=== PATIENT | male | born 1935 | race Caucasian/White ===

== ENCOUNTER 2019-03-08 16:20 | Inpatient (IN) | payer MEDICARE ==
--- NOTE | 2019-03-08 16:50 | Emergency Department Record ---
History of Present Illness - General Chief Complaint: Shortness of breath Stated Complaint: COBY,LEG SWELLING Time Seen by Provider: 03/08/19 16:26 Source: Patient, Family Mode of Arrival: Ambulatory Limitations: No limitations - History of Present Illness Initial Comments: 83 yo male presents with left leg swelling, shortness of breath, weakness since a recent admission and discharge from [facility]. The patient had a fall on 02/27/19. He was seen in the [facility] ED. A Troponin was drawn part of the trauma work up and it was found to be elevated. He had a NM Myocardial stress study that was abnormal. He had a heart cath with stent placement with Dr Luz. The patient was discharged last . He states he has done poorly since then. He is weak requiring assistance standing or walking. He is short of breath. He has swelling in his legs with the left being more swollen than the right. He saw his PCP today. Labs and a venous doppler were completed. WBC was 13. Hgb is 12. BNP was 967. CR is 1.6. AST is 261. ALT is 128. ALK Phos is 84. He lives with his of the same age. He has been unable to stand on his own, he is unable to void on his own, he is dribbling urine. He has self cathed in the past but he is unable currently. His daughter reports his physical abilities have significantly weakened since DC home last . Complaint: Shortness of breath -: Days(s) Severity: Moderate Consistency: Constant Improves With: Nothing Worsens With: Other (Recent hospitalization) Known History Of: Other Context: Other Associated Symptoms: Other Treatments Prior to Arrival: Other (Labs, Venous doppler.) - Related Data Home Medications Medication Instructions Recorded Confirmed Last Taken Albuterol Sulfate [Ventolin Hfa] 1 puff IH Q6H PRN 03/08/19 03/08/19 Unknown Aspirin [Aspir-Low] 81 mg PO DAILY 03/08/19 03/08/19 Unknown Atorvastatin Calcium 20 mg PO DAILY 03/08/19 03/08/19 Unknown Clopidogrel Bisulfate [Clopidogrel] 75 mg PO DAILY 03/08/19 03/08/19 Unknown Fluticasone/Salmeterol [Advair 1 puff IH DAILY 03/08/19 03/08/19 Unknown 250-50 Diskus] Metoprolol Succinate 25 mg PO DAILY 03/08/19 03/08/19 Unknown Nitroglycerin 0.4 mg PO ASDIR PRN 03/08/19 03/08/19 Unknown Pantoprazole Sodium [Protonix] 40 mg PO DAILY 03/08/19 03/08/19 Unknown Allergies Allergy/AdvReac Type Severity Reaction Status Date / Time ciprofloxacin Allergy PT UNSURE Verified 03/08/19 16:51 OF REACTION Review of Systems Constitutional: Reports: Malaise, Weakness. Denies: Chills, Fever Eyes: Denies: Eye discharge, Eye pain, Photophobia, Vision change ENT: Denies: Congestion, Throat pain Respiratory: Reports: Dyspnea. Denies: Cough, Hemoptysis, Stridor, Wheezes Cardiovascular: Reports: Dyspnea on exertion, Edema (legs; Left greater than right). Denies: Chest pain, Palpitations, Syncope Endocrine: Reports: Fatigue Gastrointestinal: Denies: Abdominal pain, Diarrhea, Nausea, Vomiting Genitourinary: Denies: Dysuria, Frequency, Hematuria Musculoskeletal: Reports: Myalgia. Denies: Arthralgia, Back pain Skin: Reports: Change in color. Denies: Bruising Neurological: Denies: Headache Psychiatric: Denies: Anxiety Hematological/Lymphatic: Denies: Easy bleeding, Easy bruising Physical Exam - General General Appearance: Alert, Oriented x3, Cooperative, No acute distress Limitations: No limitations - Head Head exam: Atraumatic, Normal inspection - Eye Eye exam: Normal appearance, PERRL. negative: Conjunctival injection, Scleral icterus - ENT ENT exam: Mucous membranes dry Ear exam: Normal external inspection Nasal Exam: Normal inspection Mouth exam: Normal external inspection - Neck Neck exam: Normal inspection - Respiratory Respiratory exam: Normal lung sounds bilaterally, Decreased breath sounds. negative: Accessory muscle use, Prolonged expiratory, Rhonchi, Stridor, Wheezes - Cardiovascular Cardiovascular Exam: Regular rate, Normal rhythm, Normal heart sounds Peripheral Pulses: 2+: Radial (R), Radial (L), Dorsalis Pedis (L) - GI/Abdominal GI/Abdominal exam: Soft, Tenderness (suprapubic tenderness), Other (After the villatoro was place the abdomen distention) - Rectal Rectal exam: Deferred - exam: Deferred - Extremities Extremities exam: Calf tenderness (mild left distal), Normal capillary refill, Pedal edema (Left calf mildly warmth with mild eruthema and edeam). negative: Normal inspection, Tenderness - Back Back exam: Denies: CVA tenderness (R), CVA tenderness (L) - Neurological Neurological exam: Alert, Oriented X3 - Psychiatric Psychiatric exam: Normal affect, Normal mood - Skin Skin exam: Erythema (left lower leg) Course - Reevaluation(s) Reevaluation #1: The CBC, CMP, and BNP were reviewed EKG #1: 16:44 Rate: 86 Rhythm: sinus [place]: normal Intervals: normal ST segments: normal Prior: None 03/08/19 16:51 03/08/19 17:17 The Troponin is normal 03/08/19 17:31 The Venous doppler of the legs was negative for DVT. Edema noted CXR demonstrated CMG without PVC or acute process 03/08/19 18:12 The UA is consistent with UTI His LLE has mild calf erythema and warmth IV antibiotics ordered The Villatoro drainage about 800ml due to urinary retention. 03/08/19 18:32 The results were discussed with the patient and family. Given his UTI, Cellulitis, weakness, urinary retention, deconditioning I recommend admission. The patient and family request admission to [facility] and not [facility] at this time. I SW Marty Marcano LIGHT ADJUSTER for admission. We discussed the labs, plan for gentle hydration, antibiotics, evaluation for physical therapy, monitor urinary retention. The patient and family are aware if he has any worsening of his condition. 03/08/19 18:55 Disposition Disposition: Admit Clinical Impression: Muscular deconditioning, Renal insufficiency, Elevated liver enzymes UTI (urinary tract infection) Qualifiers: Hematuria presence: without hematuria Cellulitis Qualifiers: Site of cellulitis: extremity Site of cellulitis of extremity: lower extremity Laterality: left Qualified Code(s): L03.116 - Cellulitis of left lower limb Disposition: Still a Patient at [facility] Decision to Admit: Admit from ER Decision to Admit Date: 03/08/19 Decision to Admit Time: 18:14 Condition: (2) Stable Forms: Patient Portal Access Time of Disposition: 18:14 Quality - Quality Measures Quality Measures: N/A - Blood Pressure Screening Does Patient Have Any of the Following: Active Dx of HTN Blood Pressure Classification: Hypertensive Reading Systolic Measurement: 158 Diastolic Measurement: 65 Screening for High Blood Pressure: Patient Exclusion, Hx of HTN [G9744]
[2019-03-08 17:04] LABS: PARTIAL THROMBOPLASTIN TIME 25.7 SECONDS (24.5-39.1); PROTHROMBIN TIME (PATIENT) 10.4 SECONDS (9.5-12.1)
[2019-03-08 18:00] LABS: URINE APPEARANCE SL CLOUDY; URINE BILIRUBIN NEGATIVE (NEGATIVE); URINE BLOOD LARGE (NEGATIVE); URINE COLOR YELLOW; URINE GLUCOSE (UA) NEGATIVE (NEGATIVE); URINE KETONE NEGATIVE (NEGATIVE); URINE LEUKOCYTE ESTERASE MODERATE (NEGATIVE); URINE NITRITE POSITIVE (NEGATIVE); URINE UROBILINOGEN 0.2 E.U./dL (0.20 - 1.00)
[2019-03-08 18:08] LABS: URINE RBC 21 - 35 (NONE SEEN); URINE WBC >50 (0-2/hpf)
[2019-03-08 18:09] LABS: URINE BACTERIA FEW; URINE EPITHELIAL CELLS 0 - 2 (FEW)
[2019-03-08] MEDS ORDERED: CEFTRIAXONE 1GM/50ML BAG 1 GM/50 ML BAG IVPB ONE (18:11)
[2019-03-08] MEDS ORDERED: CEFTRIAXONE 1GM/50ML BAG 1 GM/50 ML BAG IVPB SCH (20:09)
[2019-03-08] MEDS: 0.9 % SODIUM CHLORIDE 1000ML 1,000 ML IV PRN (20:55)
[2019-03-09] MEDS: PANTOPRAZOLE SODIUM 40 MG TABLET PO SCH (06:29)
[2019-03-09 06:45] LABS: ALB/GLOB RATIO 0.8 (1.1-1.8); ALBUMIN 2.5 g/dL (4.0-5.0); ALKALINE PHOSPHATASE 65 U/L (40-129); ALT/SGPT 93 U/L (<41); AST/SGOT 148 U/L (10.0-50.0); BLOOD UREA NITROGEN 32 mg/dL (8-23); CREATININE 1.2 mg/dL (0.7-1.2); EST GLOMERULAR FILTRATION RATE > 60 mL/min; GLUCOSE,RANDOM 106 mg/dL (74-109); TOTAL PROTEIN 5.6 g/dL (6.6-8.7)
--- NOTE | 2019-03-09 07:37 | RADIOLOGY REPORT ---
EXAM: CHEST, TWO VIEWS HISTORY: EDEMA IN LEFT LEG. TECHNIQUE: Upright AP and lateral views of the chest were obtained. Comparison: None. FINDINGS: The heart projects borderline to mildly enlarged. No pulmonary venous hypertension is seen. Biapical pleural and parenchymal scarring is suggested, left slightly greater than right. No lung consolidation, costophrenic angle blunting or pneumothorax. There is possible minimal linear scarring versus atelectasis in the retrocardiac left lung base. The lungs and pleural spaces are otherwise clear. There are degenerative changes of the visualized spine and shoulder girdles. IMPRESSION: 1. BORDERLINE TO MILDLY ENLARGED HEART WITHOUT PULMONARY VENOUS HYPERTENSION. 2. NO CONVINCING EVIDENCE OF AN ACUTE PULMONARY PROCESS. BIAPICAL PLEURAL AND PARENCHYMAL SCARRING, LEFT SLIGHTLY GREATER THAN RIGHT. POSSIBLE MINOR LINEAR SCARRING VERSUS ATELECTASIS IN THE RETROCARDIAC LEFT LUNG BASE. JOB NUMBER: [id number] MTDD
[2019-03-09] MEDS: 0.9 % SODIUM CHLORIDE 1000ML 1,000 ML IV PRN ×2 (08:24→21:51)
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
[2019-03-09] MEDS: ASPIRIN 81 MG TABEC PO SCH (09:58)
[2019-03-09] MEDS: METOPROLOL SUCC 25 MG TAB.ER PO SCH (09:58)
[2019-03-09] MEDS: CLOPIDOGREL 75MG TABLET PO SCH (09:58)
[2019-03-09] MEDS: TRAMADOL HCL 50 MG TABLET PO PRN (11:05)
[2019-03-09] MEDS: SENNOSIDES/DOCUSATE SODIUM UD CAPSULE PO SCH (11:06)
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
[2019-03-09] MEDS: ENOXAPARIN 40 MG/0.4 ML SYR SQ SCH (12:27)
[2019-03-09] MEDS: BREO (FLUTICASONE/VILANTEROL) 200MCG/25MCG INHALER INH SCH (12:50)
[2019-03-09] MEDS ORDERED: CEFTRIAXONE 1GM/50ML BAG 1 GM/50 ML BAG IVPB SCH (18:00)
[2019-03-10] MEDS: TRAMADOL HCL 50 MG TABLET PO PRN (02:17)
[2019-03-10 06:35] LABS: ABSOLUTE NEUTROPHIL COUNT 5.11; BASO % 0.4 % (0-6); EOS % 3.6 % (0-6); GRAN % 61.7 % (47-80); HEMATOCRIT 29.7 % (42.0-52.0); HEMOGLOBIN 9.3 gm/dl (14.0-18.0); LYMPH % 22.6 % (16-45); MEAN CELL VOLUME 89.2 fl (81-97); MEAN CORPUSCULAR HEMOGLOBIN 27.9 pg (27-33); MEAN CORPUSCULAR HGB CONC 31.3 g/dl (32-36); MEAN PLATELET VOLUME 11.3 fl (7.4-10.4); MONO % 11.7 % (0-9); PLATELET COUNT 240 K/uL (130-400); RED BLOOD COUNT 3.33 M/uL (4.40-5.70); RED CELL DISTRIBUTION WIDTH 13.1 % (11.5-14.5); WHITE BLOOD COUNT W/O DIFF 8.3 K/uL (4.2-12.2)
[2019-03-10 06:52] LABS: ALB/GLOB RATIO 0.8 (1.1-1.8); ALBUMIN 2.6 g/dL (4.0-5.0); ALKALINE PHOSPHATASE 64 U/L (40-129); ALT/SGPT 84 U/L (<41); AST/SGOT 105 U/L (10.0-50.0); BLOOD UREA NITROGEN 23 mg/dL (8-23); CREATININE 0.9 mg/dL (0.7-1.2); EST GLOMERULAR FILTRATION RATE > 60 mL/min; GLUCOSE,RANDOM 105 mg/dL (74-109); TOTAL PROTEIN 5.7 g/dL (6.6-8.7)
[2019-03-10] MEDS: PANTOPRAZOLE SODIUM 40 MG TABLET PO SCH (07:18)
--- NOTE | 2019-03-10 07:32 | ULTRASOUND REPORT ---
EXAM: ULTRASOUND OF THE ABDOMEN COMPLETE HISTORY: ABNORMAL LIVER FUNCTION. TECHNIQUE: Routine ultrasound examination of the abdomen was performed. Comparison: CT of the abdomen and pelvis without and with contrast dated 09/19/06. FINDINGS: The pancreatic tail is obscured by overlying bowel gas. The remainder of the pancreas is visualized and without focal abnormality. The proximal abdominal aorta is not diagnostically visualized. The mid and distal portions of the abdominal aorta are visualized without aneurysmal dilatation. The intrahepatic IVC is patent. The liver is homogeneous in echotexture to the extent visualized. No hepatic mass. No intra nor extrahepatic biliary ductal dilatation is seen with the common hepatic duct measuring 3 mm. The gallbladder is normal in appearance and there is a negative sonographic Santana's sign. The spleen is not enlarged. The renal margins are not optimally visualized due to body habitus. The visualized renal margins are smooth. The right kidney measures 10 cm in length and the left kidney measures 9 cm in length. No definite hydronephrosis. There is a thin walled anechoic mass with enhanced posterior through transmission arising within the upper pole of the left kidney. This measures 3.3 x 3.6 x 2.8 cm and is consistent with a benign cyst. A couple additional similar masses are noted within the left kidney measuring 1.2 cm and 1.2 cm in maximum diameter respectively. These are also likely benign cysts. There is a thin walled anechoic mass with enhanced posterior through transmission arising within the mid to lower right kidney. This measures 2.5 x 2.2 cm. No definite shadowing renal calculus. IMPRESSION: 1. LIMITED EXAMINATION DUE TO BODY HABITUS AND ABUNDANT BOWEL GAS. 2. NO ACUTE ABNORMALITY IDENTIFIED. 3. BILATERAL RENAL CYSTS. JOB NUMBER: [id number] [facility]
--- NOTE | 2019-03-10 07:36 | RADIOLOGY REPORT ---
EXAM: LEFT LOWER LEG, TWO VIEWS HISTORY: POSTERIOR PAIN. RECENT FALL. TECHNIQUE: AP and lateral views of the left lower leg are obtained. Comparison: Same day radiographic examination of the left foot. Encounter: Initial. FINDINGS: There is normal bone mineralization. No acute fracture nor dislocation. Mild tricompartmental osteoarthritic changes of the knee are identified including chondrocalcinosis of the medial and lateral menisci. The ankle mortise joint appears intact. There is a tiny plantar calcaneal spur. Mild diffuse soft tissue swelling is questioned. IMPRESSION: 1. NO ACUTE FRACTURE NOR DISLOCATION. 2. MILD DEGENERATIVE CHANGES OF THE LEFT KNEE. 3. MILD SOFT TISSUE SWELLING THROUGHOUT THE LOWER LEG. JOB NUMBER: [id number] MTDD
--- NOTE | 2019-03-10 07:42 | RADIOLOGY REPORT ---
EXAM: LEFT FOOT, THREE VIEWS HISTORY: PAIN IN POSTERIOR LOWER LEG EXTENDING TO HEEL. RECENT FALL. TECHNIQUE: Three views of the left foot were obtained. Comparison: Same day radiographic examination of the left lower leg. Encounter: Initial. FINDINGS: There is borderline osteopenia. No acute fracture, dislocation, nor destructive bone lesion identified. There are mild to moderate osteoarthritic changes of the first MTP joint. The articular relations are otherwise maintained. No periarticular erosion. There is possible tiny plantar calcaneal spur. Minor linear calcific density is noted near the posterior margin of the distal Achilles tendon suspicious for tendinosis. There is minor spurring of the medial malleolus. IMPRESSION: 1. NO ACUTE FRACTURE NOR DISLOCATION. 2. MILD TO MODERATE OSTEOARTHRITIC CHANGES OF THE FIRST MTP JOINT. TINY PLANTAR CALCANEAL SPUR QUESTIONED. MINOR LINEAR CALCIFIC DENSITY AT THE LEVEL OF THE DISTAL ACHILLES TENDON SUSPICIOUS FOR CALCIFIC TENDINOSIS OR ENTHESOPATHIC CHANGE. JOB NUMBER: [id number] MTDD
[2019-03-10] MEDS: SENNOSIDES/DOCUSATE SODIUM UD CAPSULE PO SCH (09:11)
[2019-03-10] MEDS: CLOPIDOGREL 75MG TABLET PO SCH (09:11)
[2019-03-10] MEDS: METOPROLOL SUCC 25 MG TAB.ER PO SCH (09:11)
[2019-03-10] MEDS: ASPIRIN 81 MG TABEC PO SCH (09:11)
[2019-03-10] MEDS: ENOXAPARIN 40 MG/0.4 ML SYR SQ SCH (09:11)
[2019-03-10] MEDS: CEFEPIME HCL 2 GM in 0.9 % SODIUM CHLORIDE 100ML 100 ML IVPB SCH ×2 (09:51→21:27)
[2019-03-10] MEDS: BREO (FLUTICASONE/VILANTEROL) 200MCG/25MCG INHALER INH SCH (10:31)
--- NOTE | 2019-03-10 12:16 | Physician Progress Note ---
Subjective - Date Date of Physician Progress Note: 03/10/19 - Subjective Subjective Comment: Sitting up in chair, A&Ox3. Reports pain in his BLE, that was quite painful the previous evening. Worked with PT/OT yesterday and staff reported that he required 2 people to stand. Today, the RN reported that he was able to stand with a 1 person assist. Pt reports that he has eaten more the past 2 days than he has the entire month. Had a urine culture done on 02/25/19 which showed + for pseudomonas. Did receive a 5 day dose of Ciprofloxacin. Pt reports an allergy to Cipro but doesn't know the reaction. Reports that his previous PCP told him that years ago. Location: Left, Right, Lower extremity Quality: Aching Consistency: Constant Improves with: Medication Worsens with: Immobilization Objective - Multidiciplinary Team Multidiciplinary Team: OT, PT - Vital Signs Vital Signs: Vital Signs - Last 24 Hrs Temp Pulse Pulse Pulse Resp BP Pulse Ox 03/10/19 10:34 73 18 95 03/10/19 08:00 98.2 F 73 16 142/58 93 L 03/09/19 22:00 98.4 F 72 18 134/66 94 L 03/09/19 20:41 16 03/09/19 16:00 97.2 F L 73 73 16 138/58 96 03/09/19 12:45 65 16 - General General Appearance: Alert, Oriented x3, Cooperative, No acute distress Limitations: No limitations - Head Head exam: Atraumatic, Normal inspection - Eye Eye exam: Normal appearance, PERRL. negative: Conjunctival injection, Scleral icterus - ENT ENT exam: Mucous membranes dry Ear exam: Normal external inspection Nasal Exam: Normal inspection Mouth exam: Normal external inspection - Neck Neck exam: Normal inspection - Respiratory Respiratory exam: Normal lung sounds bilaterally. negative: Accessory muscle use, Prolonged expiratory, Respiratory distress, Rhonchi, Stridor, Wheezes - Cardiovascular Cardiovascular Exam: Regular rate, Normal rhythm, Normal heart sounds Peripheral Pulses: 2+: Radial (R), Radial (L), Dorsalis Pedis (R), Dorsalis Pedis (L) - GI/Abdominal GI/Abdominal exam: Soft, Normal bowel sounds - Rectal Rectal exam: Deferred - exam: Normal inspection - Extremities Extremities exam: Calf tenderness (mild left distal), Normal capillary refill, Pedal edema (Left calf mildly warmth with mild erythema and edema). negative: Normal inspection, Tenderness - Back Back exam: Denies: CVA tenderness (R), CVA tenderness (L) - Neurological Neurological exam: Alert, Oriented X3 - Psychiatric Psychiatric exam: Normal affect, Normal mood - Skin Skin exam: Erythema (left lower leg), Other (faint bruising to left calf) Assessment and Plan - Assessment and Plan (1) Pain of left lower extremity Current Visit: Yes Status: Acute Base Code: M79.605 - PAIN IN LEFT LEG Comment: 03/09/19 -LLE Dopplar Negative for DVT -Left foot Xray: no fractures. OA changes -Left tib/Fib Xray: No fractures. Soft tissue swelling -Continue Ultram 50mg q. 4 hours PRN for pain control -Avoiding Acetaminophen d/t elevated liver enzymes and Ibuprofen d/t renal insufficiency (2) Cellulitis Current Visit: Yes Status: Acute Qualifiers: Site of cellulitis: extremity Site of cellulitis of extremity: lower extremity Laterality: left Qualified Code(s): L03.116 - Cellulitis of left lower limb Base Code: L03.90 - CELLULITIS, UNSPECIFIED Comment: 03/10/19 -Erythema, Edema to LLE -IV Atbx changed to IV Cefepime for better UTI coverage, will monitor LLE erythema and edema to see if Staph coverage needed (3) Elevated liver enzymes Current Visit: Yes Status: Acute Base Code: R74.8 - ABNORMAL LEVELS OF OTHER SERUM ENZYMES Comment: 03/10/19 -AST down from 148 to 105 -ALT down from 93 to 84 -Abdomen U/S: No acute process (4) Muscular deconditioning Current Visit: Yes Status: Acute Base Code: R29.898 - OTH SYMPTOMS AND SIGNS INVOLVING THE MUSCULOSKELETAL SYSTEM Comment: 03/10/19 -[facility] 02[facility] to 03/03/19 -Has not ambulated since 02/27/19 -Continue PT/OT -Discussed SubAcute Rehab for further PT/OT, pt agreeable (5) UTI (urinary tract infection) Current Visit: Yes Status: Acute Qualifiers: Hematuria presence: without hematuria Base Code: N39.0 - URINARY TRACT INFECTION, SITE NOT SPECIFIED Comment: 03/10/19 -U/A: Large Blood, +Nitrites, + Leukocytes -C&S pending -Was seen in [facility] on 02/25/19 for UTI and retention and completed 5 days of Cipro -C&S from [facility] on 02/25/19 positive for Pseudomonas -D/t Cipro allergy, will start IV Cefepime (which is susceptible per 02/25/19 C&S) -PICC placed d/t needing 10 days of treatment -D/C villatoro -Continue IV Rocephin (6) Restless legs Current Visit: Yes Status: Acute Base Code: G25.81 - RESTLESS LEGS SYNDROME Comment: 03/10/19 -Trial Requip 0.5mg q. HS for RLS symptoms (7) Full code status Current Visit: Yes Status: Acute Base Code: Z78.9 - OTHER SPECIFIED HEALTH STATUS Comment: 03/10/19 -Full Code this admission (8) DVT prophylaxis Current Visit: Yes Status: Acute Base Code: Z29.9 - ENCOUNTER FOR OR OPHYLACTIC MEASURES, UNSPECIFIED Comment: 03/10/19 -High Risk -Lovenox 40mg subq daily Results - Labs Result Diagrams: 03/10/19 06:12 03/10/19 06:12 Labs Last 24 Hours: Laboratory Results - last 24 hr 03/10/19 03/10/19 06:12 06:12 WBC 8.3 RBC 3.33 L Hgb 9.3 L Hct 29.7 L MCV 89.2 MCH 27.9 MCHC 31.3 L RDW 13.1 Plt Count 240 MPV 11.3 H Gran % 61.7 Lymphocytes % 22.6 Monocytes % 11.7 H Eosinophils % 3.6 Basophils % 0.4 Absolute Neutrophils 5.11 Sodium 139 Potassium 4.4 Chloride 107 Carbon Dioxide 23.0 Anion Gap 9.0 BUN 23 Creatinine 0.9 Estimated GFR > 60 Random Glucose 105 Calcium 8.4 L Total Bilirubin 0.30 AST 105 H ALT 84 H Alkaline Phosphatase 64 Total Protein 5.7 L Albumin 2.6 L Globulin 3.1 Albumin/Globulin Ratio 0.8 L DVT/PE Assessment - Risk for VTE Risk for VTE: No Risk Level: High Risk Assessment Date: 03/09/19 Risk Assessment Time: 09:30 VTE Orders Placed or Will Be Placed: Yes - Active Medicaitons Current Medications: Current Medications Aspirin (Ecotrin (Ec)) 81 mg PO DAILY JESSICA Last Admin: 03/10/19 09:11 Dose: 81 mg Documented by: Clopidogrel Bisulfate (Plavix) 75 mg PO DAILY [facility] Last Admin: 03/10/19 09:11 Dose: 75 mg Documented by: Enoxaparin Sodium (Lovenox) 40 mg SQ DAILY [facility] Last Admin: 03/10/19 09:11 Dose: 40 mg Documented by: CEFEPIME HCL 2 gm/ Sodium (Chloride) 100 mls @ 200 mls/hr IVPB Q12H [facility] Last Admin: 03/10/19 09:51 Dose: 200 mls/hr Documented by: Metoprolol Succinate (Toprol Xl) 25 mg PO DAILY [facility] Last Admin: 03/10/19 09:11 Dose: 25 mg Documented by: [facility]oprazole [facility] Admin: 03/10/19 07:18 Dose: 40 mg Documented by: Ropinirole HCl (Requip) 0.5 mg PO QHS [facility] Senna/Docusate Sodium (Senna Plus) 1 each PO DAILY [facility] Last Admin: 03/10/19 09:11 Dose: 1 each Documented by: Tramadol HCl (Ultram) 50 mg PO Q4H PRN PRN Reason: PAIN - MILD TO MODERATE (1-7) Last Admin: 03/10/19 02:17 Dose: 50 mg Documented by: AMI Plan - Labs Result Diagrams: 03/10/19 06:12 03/10/19 06:12
--- NOTE | 2019-03-10 14:24 | Physical Therapy Tx Note ---
Physical Therapy Tx Note - Treatment Note Total Time Spent With Patient: 30 Physical Therapy Tx Note: Detail (Pt up in bedside chair upon arrival; awake/alert, cooperative for therapy. and daughter present in room. Pt performed 10 reps each of seated marching, knee extension, heel slides, ankle dorsiflexion R, isometric hip adduction w/pillow, isometric hip abduction w/manual resistance. Attempted sit/stand to front-wheeled walker; unable to fully rise from chair w/mod assist of one or w/mod assist of two (PT and nurse). Partially stood w/o walker with heavy moderate assist of two (PT and MA) while nurse moved bedside chair and put recliner behind pt. Pt was able to independently scoot back in chair; nrsg elevated legs, PT placed pillow under legs and reviewed exercises he could do in recliner. Bedside table placed on R side of pt, call light in pt's lap.) Physical Therapy Problem List: Detail (1) Decreased UE and LE strength 2) Assistance with bed mobility, transfers 3) Non ambulatory 4) Decreased standing balance due to LE weakness) Physical Therapy Goals: 1) The patient will be independent with bed mobility. 2) The patient will require CG/supervision of 1 with transfers. 3) The patient will ambulate with supervison/CG of 1 with appropriate assistive device household distances. 4) Increase LE strength 1/3 muscle grade to improve ability to transfer and ambulate. 5) The patient will tolerate 15 to 20 minutes of physical activity with minimal shortness of breath with one rest period. Physical Therapy Plan: PT daily M-F for gait training, transfer training, bed mobility , LE and UE strengthening and balance exercises.
[2019-03-10] MEDS ORDERED: ACETAMINOPHEN 325 MG TAB PO PRN (17:27)
[2019-03-10] MEDS ORDERED: ROPINIROLE HCL 1 MG TABLET PO SCH (22:00)
[2019-03-11] MEDS: PANTOPRAZOLE SODIUM 40 MG TABLET PO SCH (06:18)
--- NOTE | 2019-03-11 07:18 | RADIOLOGY REPORT ---
EXAM: PORTABLE CHEST HISTORY: PICC LINE PLACEMENT. TECHNIQUE: A single mobile upright view of the chest was obtained. Comparison: Two view chest radiographic examination dated 03/08/19. FINDINGS: There has been interval placement of a right upper extremity PICC with its tip in the upper SVC. The heart is not grossly enlarged. No pulmonary venous hypertension is seen. The aortic knob is atherosclerotic. The lung volumes are low. Minor patchy opacities are demonstrated within each lung base consistent with atelectasis or less likely infiltrate. Biapical pleural and parenchymal scarring redemonstrated, left slightly greater than right. IMPRESSION: 1. INTERVAL PLACEMENT OF A RIGHT UPPER EXTREMITY PICC, THE TIP OF WHICH IS IN THE UPPER SVC. 2. MINOR PATCHY OPACITIES IN EACH LUNG BASE, STABLE ON THE LEFT AND NEW ON THE RIGHT CONSISTENT WITH ATELECTASIS OR LESS LIKELY INFILTRATE. JOB NUMBER: [id number] MTDD
--- NOTE | 2019-03-11 09:30 | Discharge Summary ---
Providers Discharge Summary Date: 03/11/19 Date of admission: 03/08/19 19:31 Attending physician: MEREDITH ENNIS Primary care physician: AYE KEMP D.O. Consults: Consult Orders 03/10/19 17:29 Consult NOW Consulting Provider: DEIRDRE ALVA Physician Instructions: Reason For Exam: Urinary Retention Physical Exam - Vital Signs Vital Signs: Vital Signs - Last 24 Hrs Temp Pulse Pulse Resp BP Pulse Ox 03/11/19 07:30 98.1 F 77 16 124/58 94 L 03/10/19 20:19 18 03/10/19 18:40 98.1 F 87 16 150/58 94 L 03/10/19 16:00 100.1 F H 83 16 172/70 94 L 03/10/19 10:34 73 18 95 - General General Appearance: Alert, Oriented x3, Cooperative, No acute distress Limitations: No limitations - Head Head exam: Atraumatic, Normal inspection - Eye Eye exam: Normal appearance, PERRL. negative: Conjunctival injection, Scleral icterus - ENT ENT exam: Mucous membranes dry Ear exam: Normal external inspection Nasal Exam: Normal inspection Mouth exam: Normal external inspection - Neck Neck exam: Normal inspection - Respiratory Respiratory exam: Normal lung sounds bilaterally. negative: Accessory muscle use, Prolonged expiratory, Respiratory distress, Rhonchi, Stridor, Wheezes - Cardiovascular Cardiovascular Exam: Regular rate, Normal rhythm, Normal heart sounds Peripheral Pulses: 2+: Radial (R), Radial (L), Dorsalis Pedis (R), Dorsalis Pedis (L) - GI/Abdominal GI/Abdominal exam: Soft, Normal bowel sounds - Rectal Rectal exam: Deferred - exam: Normal inspection - Extremities Extremities exam: Calf tenderness (left ankle and calf), Normal capillary refill, Pedal edema (Left calf mildly warmth with mild erythema and edema). negative: Normal inspection, Tenderness - Back Back exam: Denies: CVA tenderness (R), CVA tenderness (L) - Neurological Neurological exam: Alert, Oriented X3 - Psychiatric Psychiatric exam: Normal affect, Normal mood - Skin Skin exam: Erythema (left lower leg), Other (faint bruising to left calf) Hospitalization - Hospitalization Admission Diagnosis: UTI, Deconditioning, Cellulitis, Urinary Retention - Problem List/Discharge Diagnosis (1) Urine retention Current Visit: Yes Status: Acute Base Code: R33.9 - RETENTION OF URINE, UNSPECIFIED Comment: 03/11/19 -Villatoro placed in ED d/t BSV over 800 -Villatoro removed yesterday with bladder scan monitoring -Unable to urinate after 8 hours, BSV 504 and villatoro replaced -Consult placed to Urology -Appointment with Dr. Copeland at 2pm (2) Pain of left lower extremity Current Visit: Yes Status: Acute Base Code: M79.605 - PAIN IN LEFT LEG Comment: 03/11/19 -Continues c/o LLE discomfort, mostly surrounding ankle -Left Foot Xray: No fx, questionable tiny plantar calcaneal spur, possible ca lcific tendinosis -Consult Podiatry (Dr. Santana) -LLE Dopplar Negative for DVT -Continue Ultram 50mg q. 4 hours PRN for pain control -Avoiding Acetaminophen d/t elevated liver enzymes and Ibuprofen d/t renal insufficiency (3) Cellulitis Current Visit: Yes Status: Acute Discharge Diagnosis: Site of cellulitis: extremity Site of cellulitis of extremity: lower extremity Laterality: left Qualified Code(s): L03.116 - Cellulitis of left lower limb Base Code: L03.90 - CELLULITIS, UNSPECIFIED Comment: 03/11/19 -Erythema, Edema to LLE -IV Atbx changed to IV Cefepime for better UTI coverage, will monitor LLE erythema and edema to see if Staph coverage needed (4) Elevated liver enzymes Current Visit: Yes Status: Acute Base Code: R74.8 - ABNORMAL LEVELS OF OTHER SERUM ENZYMES Comment: 03/11/19 -AST down from 148 to 105 -ALT down from 93 to 84 -Abdomen U/S: No acute process (5) Muscular deconditioning Current Visit: Yes Status: Acute Base Code: R29.898 - OTH SYMPTOMS AND SIGNS INVOLVING THE MUSCULOSKELETAL SYSTEM Comment: 03/11/19 -Moving to Swing Bed Program for further PT/OT and IV therapy for UTI (6) UTI (urinary tract infection) Current Visit: Yes Status: Acute Discharge Diagnosis: Hematuria presence: without hematuria Base Code: N39.0 - URINARY TRACT INFECTION, SITE NOT SPECIFIED Comment: 03/11/19 -U/A: Large Blood, +Nitrites, + Leukocytes -C&S pending -Was seen in [facility] on 02/25/19 for UTI and retention and completed 5 days of Cipro -C&S from U/A on 02/25/19 positive for Pseudomonas -D/t Cipro allergy, will start IV Cefepime (which is susceptible per 02/25/19 C&S) -PICC placed d/t needing 10 days of treatment -Continue IV Cefepime (7) Restless legs Current Visit: Yes Status: Acute Base Code: G25.81 - RESTLESS LEGS SYNDROME Comment: 03/11/19 -Requip 0.5mg q. HS for RLS symptoms (8) Full code status Current Visit: Yes Status: Acute Base Code: Z78.9 - OTHER SPECIFIED HEALTH STATUS Comment: 03/11/19 -Full Code this admission (9) DVT prophylaxis Current Visit: Yes Status: Acute Base Code: Z29.9 - ENCOUNTER FOR PROPHYLACTIC MEASURES, UNSPECIFIED Comment: 03/11/19 -High Risk -Lovenox 40mg subq daily - Hospitalization Course Disposition: Moved to Swing Bed Hospital Course: Edgar Mckeon is an 83 y.o. M who presented to [facility] ED on 03/08/19 with c/o left leg swelling and pain, SOB and increased weakness since a recent admission at [facility]. Was hospitalized from 02/27/19 through 03/03/19 after a fall that brought him in to the ED where he was then found to have abnormal troponins. He underwent a nuclear stress test which was abnormal and then underwent a cardiac catheterization with stent placement x1 with Dr. Zach Luz. Since discharge on 03/03/19, he reports that he has has not walked and has had trouble even standing at home d/t weakness. Prior to presentation at the [facility] ED on 03/08/19, he was seen by his PCP who ordered labwork and dopplers who then recommended he present to ER. WBC 12.4, Hgb 12, BNP 967, creatinine 1.6, GFR 44, AST 261 and ALT 128. Doppler negative for DVT. Reported that he had had difficulty urinating prior to the fall on 02/27/19 and had been dribbling urine. Bladder scan = 869ml and a villatoro catheter was then placed. He reports that he had tried to self cath at home but was unable to get the catheter to advance. Saw a urologist several years ago to have, what he thinks, was his prostate checked. PCP: Aye Kemp 03/09/19 0930 Vitals: T 98.9, HR 82, BP 158/59, RR 18, SpO2 95% on RA Sitting up in bed, A&Ox3. Reports that he is feeling better than when he arrived but that he is having alot of LLE pain, mostly from the knee down. States that the cardiac catheter access site was in right groin. Denies having any groin pain. Rates it a 5-02/28. Hasn't had a BM in a few days and does report a hx of constipation, stating that he has been taking Dulcolax at home. Denies having any SOB at this time. Has had a cough, which started prior to the fall on 02/27/19. Reports that he has a smoking history but quit 26 years ago. PT/OT not yet been in to evaluate him. 03/10/19 1200 Sitting up in chair, A&Ox3. Reports pain in his BLE, that was quite painful the previous evening. Worked with PT/OT yesterday and staff reported that he required 2 people to stand. Today, the RN reported that he was able to stand with a 1 person assist. Pt reports that he has eaten more the past 2 days than he has the entire month. Had a urine culture done on 02/25/19 which showed + for pseudomonas. Did receive a 5 day dose of Ciprofloxacin. Pt reports an allergy to Cipro but doesn't know the reaction. Reports that his previous PCP told him that years ago. 03/11/19 1000 Vitals: T 98.1, HR 77, BP 124/58, RR 16, SPO2 94% on RA Sitting in bed, A&Ox3. Still reports having some LLE ankle stinging. Worked with PT/OT yesterday and reports being excited to get out of bed today and "get going" with more therapy. Very small BM yesterday. Will order Miralax daily. Reports having cough in the mornings, this is chronic. Procedures: Imaging and X-Rays 03/08/19 16:39 CHEST 2 VIEWS [RAD] Stat 03/09/19 08:00 ABDOMEN, COMPLETE [US] Stat 03/09/19 10:25 LOWER LEG, LEFT [RAD] Stat 03/09/19 10:26 FOOT, LEFT 3 VIEWS [RAD] Stat 03/10/19 13:02 CHEST 1 VIEW [RAD] Stat Cardiology Procedures 03/08/19 16:39 EKG NOW Abnormal Labs: Abnormal Lab Results 03/08/19 03/09/19 03/09/19 Range/Units 17:50 06:10 06:10 RBC (4.40-5.70) M/uL Hgb (14.0-18.0) gm/dl Hct (42.0-52.0) % MCHC (32-36) g/dl MPV (7.4-10.4) fl Monocytes % (0-9) % Carbon Dioxide 21.0 L (22-29) mmol/L BUN 32 H (8-23) mg/dL Calcium 8.2 L (8.8-10.2) mg/dL AST 148 H (10.0-50.0) U/L ALT 93 H (<41) U/L NT-Pro-B Natriuret Pep 538.20 H (<450) pg/mL Total Protein 5.6 L (6.6-8.7) g/dL Albumin 2.5 L (4.0-5.0) g/dL Albumin/Globulin Ratio 0.8 L (1.1-1.8) Urine Protein 30 mg/dl H (NEGATIVE) Urine Blood Large H (NEGATIVE) Urine Nitrite Positive H (NEGATIVE) Ur Leukocyte Esterase Moderate H (NEGATIVE) 03/10/19 03/10/19 Range/Units 06:12 06:12 RBC 3.33 L (4.40-5.70) M/uL Hgb 9.3 L (14.0-18.0) gm/dl Hct 29.7 L (42.0-52.0) % MCHC 31.3 L (32-36) g/dl MPV 11.3 H (7.4-10.4) fl Monocytes % 11.7 H (0-9) % Carbon Dioxide (22-29) mmol/L BUN (8-23) mg/dL Calcium 8.4 L (8.8-10.2) mg/dL AST 105 H (10.0-50.0) U/L ALT 84 H (<41) U/L NT-Pro-B Natriuret Pep (<450) pg/mL Total Protein 5.7 L (6.6-8.7) g/dL Albumin 2.6 L (4.0-5.0) g/dL Albumin/Globulin Ratio 0.8 L (1.1-1.8) Urine Protein (NEGATIVE) Urine Blood (NEGATIVE) Urine Nitrite (NEGATIVE) Ur Leukocyte Esterase (NEGATIVE) Condition at Discharge: (2) Stable Discharge Medications - Discharge Medications Home Medications: Ambulatory Orders Albuterol Sulfate [Ventolin Hfa] 1 puff IH Q6H PRN 03/08/19 [Last Taken Unknown] Aspirin [Aspir-Low] 81 mg PO DAILY 03/08/19 [Last Taken Unknown] Atorvastatin Calcium 20 mg PO DAILY 03/08/19 [Last Taken Unknown] Clopidogrel Bisulfate [Clopidogrel] 75 mg PO DAILY 03/08/19 [Last Taken Unknown] Fluticasone/Salmeterol [Advair 250-50 Diskus] 1 puff IH DAILY 03/08/19 [Last Taken Unknown] Metoprolol Succinate 25 mg PO DAILY 03/08/19 [Last Taken Unknown] Nitroglycerin 0.4 mg PO ASDIR PRN 03/08/19 [Last Taken Unknown] Pantoprazole Sodium [Protonix] 40 mg PO DAILY 03/08/19 [Last Taken Unknown] Discharge Plan - Discharge Instructions Quality Measures - Quality Measures Quality Measures: Advance Directives, Documentation of Current Medications in Medical Record, Elder Maltreatment Screen and Follow-Up Plan, Screening for High Blood Pressure and F/U Documented - Current Medications Quality Measure: Measure #130: Documentation of Current Medications Documentation of Current Medications: <Current Medications Documented/Reviewed> [M6626] - Blood Pressure Screening Quality Measure: Screening for High Blood Pressure and Follow-Up Documented Does Patient Have Any of the Following: Active Dx of HTN Blood Pressure Classification: Hypertensive Reading Systolic Measurement: 158 Diastolic Measurement: 65 Screening for High Blood Pressure: Patient Exclusion, Hx of HTN [G9744] - Advance Directives Quality Measure: Measure #47: Care Plan Advance Directives Established: No Advance Directives Information Provided To Patient: No Advance Directives on File: No Power of Senior Production Planner: Yes Power of Senior Production Planner Name: JASMINA Advance Care Planning: <Care Plan/Decision Maker Documented; Discussed & Documented> [2183F] - Elder Abuse Suspicion Index Screening: Elder Abuse Suspicion Index Screening Rely on people for bathing, dressing, shopping, banking, etc: No Prevented from getting food, clothes, medication, etc: No Made to feel shamed or threatened by someone: No Forced to sign papers or use money against will: No Feel afraid, touched in ways not wanted or hurt physically: No Poor eye contact, withdrawn, malnourished, cuts or bruises: No Screening Result: Negative result EASI Reference Information: Mitchell HEADLEY, Mariaelena Bermudez, Charito Catalan, Pee Granda.Development and validation of a tool to assist physicians identification of elder abuse: The Elder Abuse Suspicion Index (EASI ). Journal of Elder Abuse and Neglect, 2008; 20 (3): 276-300. - Elder Maltreatment Screen Quality Measures: Elder Maltreatment Screen and Follow-Up Plan Elder Maltreatment Screen: <Negative, No Follow-Up Plan Required> [G8734]
[2019-03-11] MEDS ORDERED: GUAIFENESIN 600 MG TABCR PO SCH (10:00)
[2019-03-11] MEDS: BREO (FLUTICASONE/VILANTEROL) 200MCG/25MCG INHALER INH SCH (10:34)
[2019-03-11] MEDS: SENNOSIDES/DOCUSATE SODIUM UD CAPSULE PO SCH (10:49)
[2019-03-11] MEDS: CEFEPIME HCL 2 GM in 0.9 % SODIUM CHLORIDE 100ML 100 ML IVPB SCH (10:50)
[2019-03-11] MEDS: METOPROLOL SUCC 25 MG TAB.ER PO SCH (10:50)
[2019-03-11] MEDS: ASPIRIN 81 MG TABEC PO SCH (10:50)
[2019-03-11] MEDS: ENOXAPARIN 40 MG/0.4 ML SYR SQ SCH (10:50)
[2019-03-11] MEDS: CLOPIDOGREL 75MG TABLET PO SCH (10:50)
[2019-03-11] MEDS ORDERED: HEPARIN SODIUM FLUSH 100 UNITS/ML SYR 5ML IVP ONE (11:25)
[2019-03-11] MEDS ORDERED: 0.9 % SODIUM CHLORIDE 10ML SYR IVP ONE (11:25)
== END 2019-03-11 12:20 | disposition swing bed (61) | DRG 696 ==
LOC: ER 16:20 → MEDSURG 19:31
PROVIDERS: ADMIT Internal Medicine; ATTEND Internal Medicine
DX: R32 Unspecified urinary incontinence (principal); L03.116 Cellulitis of left lower limb; N39.0 Urinary tract infection, site not specified; M79.605 Pain in left leg; R60.0 Localized edema; R53.81 Other malaise; R33.9 Retention of urine, unspecified; N28.9 Disorder of kidney and ureter, unspecified; R74.8 Abnormal levels of other serum enzymes; R05 Cough; K21.9 Gastro-esophageal reflux disease without esophagitis; J44.9 Chronic obstructive pulmonary disease, unspecified; J43.8 Other emphysema; G25.81 Restless legs syndrome; I34.0 Nonrheumatic mitral (valve) insufficiency; E78.00 Pure hypercholesterolemia, unspecified; L53.8 Other specified erythematous conditions; Z87.891 Personal history of nicotine dependence; Z95.5 Presence of coronary angioplasty implant and graft; Z98.61 Coronary angioplasty status; F03.90 Unspecified dementia, unspecified severity, without behavioral disturbance, psychotic disturbance, mood disturbance, and anxiety
CPT/HCPCS: 71045; 71046; 76700; 80053; 81001; 83880; 84484; 85025; 85027; 85610; 85730; 93005; 93010; 94010; 94640; 94760; 96365; 96366; 97110; 97530; 99223; 99233; 99239; 99285; J0696; J1650

== ENCOUNTER 2019-03-11 10:00 | Inpatient (IN) | payer MEDICARE ==
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
--- NOTE | 2019-03-11 14:33 | Physical Therapy Tx Note ---
Physical Therapy Tx Note - Treatment Note Tolerated: Good Total Time Spent With Patient: 15 Physical Therapy Tx Note: Detail (The patient was up in chair with present when PT arrived. The patient completed the following LE exercises which including: riding pedal bike x 1 minute, hip marching, toe raises, hip adductor squeezes all x 10 reps, LAQ R x 10 reps, L x 8 reps, white T-band hip abduction and hamstring curls x 10 reps. Patient was fatigued after the exercises. Patient was given written instructions for LE HEP of strengthening exercises over the weekend.) Physical Therapy Problem List: Detail (1) Decreased LE strength 2)Assistance with bed mobility and transfers 3) Nonambulatory 4) Decreased standing balance due to LE weakness 5) Decreased ability to complete prolonged physical activity) Physical Therapy Goals: 1) The patient will be independent with bed mobility. 2) The patient will require CG/supervision of 1 with transfers. 3) The patient will ambulated with supervision/CG with appropriate device household distances. 4) Increase LE strength 1/3 muscle grade to improve ambulity to transfer and ambulate. 5) The patient will tolerate 30 min of physical activity with one to two rest periods. Physical Therapy Plan: PT 1-2 times a day M-F for gait training, transfer training, bed mobility, LE strengthening exercises and balance exercises.
[2019-03-11] MEDS ORDERED: PNEUM 13-VAL/PF 0.5 ML IM ONE (17:21)
[2019-03-11] MEDS: ROPINIROLE HCL 1 MG TABLET PO SCH (21:12)
[2019-03-11] MEDS: GUAIFENESIN 600 MG TABCR PO SCH (21:12)
[2019-03-11] MEDS: CEFEPIME HCL 2 GM in 0.9 % SODIUM CHLORIDE 100ML 100 ML IVPB SCH (21:14)
[2019-03-11] MEDS: 0.9 % SODIUM CHLORIDE 10ML SYR IVP SCH (21:57)
[2019-03-11] MEDS: HEPARIN SODIUM FLUSH 100 UNITS/ML SYR 5ML IVP SCH (21:57)
[2019-03-12] MEDS: ACETAMINOPHEN 325 MG TAB PO PRN (04:28)
[2019-03-12] MEDS: PANTOPRAZOLE SODIUM 40 MG TABLET PO SCH (06:30)
[2019-03-12] MEDS: ENOXAPARIN 40 MG/0.4 ML SYR SQ SCH (09:15)
[2019-03-12] MEDS: POLYETHYLENE GLY 17 GM PACKET PO SCH (09:16)
[2019-03-12] MEDS: CLOPIDOGREL 75MG TABLET PO SCH (09:16)
[2019-03-12] MEDS: GUAIFENESIN 600 MG TABCR PO SCH ×2 (09:16→21:13)
[2019-03-12] MEDS: ASPIRIN 81 MG TABEC PO SCH (09:16)
[2019-03-12] MEDS: METOPROLOL SUCC 25 MG TAB.ER PO SCH (09:38)
[2019-03-12] MEDS: BREO (FLUTICASONE/VILANTEROL) 200MCG/25MCG INHALER INH SCH (09:51)
[2019-03-12] MEDS: 0.9 % SODIUM CHLORIDE 10ML SYR IVP SCH ×2 (10:44→21:55)
[2019-03-12] MEDS: CEFEPIME HCL 2 GM in 0.9 % SODIUM CHLORIDE 100ML 100 ML IVPB SCH ×2 (10:50→21:14)
[2019-03-12] MEDS: SENNOSIDES/DOCUSATE SODIUM UD CAPSULE PO SCH (10:51)
[2019-03-12] MEDS: HEPARIN SODIUM FLUSH 100 UNITS/ML SYR 5ML IVP SCH ×2 (11:30→21:55)
--- NOTE | 2019-03-12 12:30 | Swing Bed Certification/Recert ---
Initial Certification Due: 03/11/19 14 Day Re-Cert Due: 03/25/19 44 Day Re-Cert Due: 04/24/19 74 Day Re-Cert Due: 05/24/19 CERTIFICATION CERTIFICATION OF PATIENT ADMISSION Required at time of admission. Due: 03/11/19 I certify that SNF services are required to be given on an inpatient basis because of the above named patient's need for [facility] care on a continuing basis for the condition(s) for which he/she was receiving inpatient hospital services prior to his/her transfer to the SNF. The patient's current needs for skilled care includes: [] DEIRDRE ALVA, N.P. 03/12/19
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
[2019-03-12] MEDS ORDERED: MAGNESIUM HYDROXIDE 30 ML UDC PO ONE (12:37)
[2019-03-12] MEDS: ROPINIROLE HCL 1 MG TABLET PO SCH (21:12)
[2019-03-12] MEDS: NAPROXEN 250 MG TABLET PO SCH (21:13)
[2019-03-13] MEDS: ACETAMINOPHEN 325 MG TAB PO PRN (03:53)
[2019-03-13 06:00] LABS: HEMATOCRIT 28.4 % (42.0-52.0); HEMOGLOBIN 9.4 gm/dl (14.0-18.0); MEAN CELL VOLUME 86.3 fl (81-97); MEAN CORPUSCULAR HGB CONC 33.1 g/dl (32-36); MEAN PLATELET VOLUME 10.9 fl (7.4-10.4); PLATELET COUNT 239 K/uL (130-400); RED BLOOD COUNT 3.29 M/uL (4.40-5.70); RED CELL DISTRIBUTION WIDTH 12.8 % (11.5-14.5); WHITE BLOOD COUNT W/O DIFF 6.5 K/uL (4.2-12.2)
[2019-03-13 06:03] LABS: MEAN CORPUSCULAR HEMOGLOBIN 28.5 pg (27-33)
[2019-03-13] MEDS: PANTOPRAZOLE SODIUM 40 MG TABLET PO SCH (06:18)
[2019-03-13 06:20] LABS: ALB/GLOB RATIO 0.9 (1.1-1.8); ALBUMIN 2.7 g/dL (4.0-5.0); ALKALINE PHOSPHATASE 60 U/L (40-129); ALT/SGPT 53 U/L (<41); AST/SGOT 42 U/L (10.0-50.0); BLOOD UREA NITROGEN 28 mg/dL (8-23); CREATININE 0.9 mg/dL (0.7-1.2); EST GLOMERULAR FILTRATION RATE > 60 mL/min; GLUCOSE,RANDOM 96 mg/dL (74-109); TOTAL PROTEIN 5.7 g/dL (6.6-8.7)
[2019-03-13] MEDS: ASPIRIN 81 MG TABEC PO SCH (09:18)
[2019-03-13] MEDS: POLYETHYLENE GLY 17 GM PACKET PO SCH (09:18)
[2019-03-13] MEDS: ENOXAPARIN 40 MG/0.4 ML SYR SQ SCH (09:18)
[2019-03-13] MEDS: GUAIFENESIN 600 MG TABCR PO SCH ×2 (09:19→21:05)
[2019-03-13] MEDS: SENNOSIDES/DOCUSATE SODIUM UD CAPSULE PO SCH (09:19)
[2019-03-13] MEDS: CLOPIDOGREL 75MG TABLET PO SCH (09:19)
[2019-03-13] MEDS: METOPROLOL SUCC 25 MG TAB.ER PO SCH (09:20)
[2019-03-13] MEDS: BREO (FLUTICASONE/VILANTEROL) 200MCG/25MCG INHALER INH SCH (09:59)
[2019-03-13 11:09] LABS: % SATURATION 16 % (20-50)
[2019-03-13] MEDS ORDERED: MULTIVITAMINS/MINERALS TABLET PO SCH (11:45)
[2019-03-13] MEDS: CEFEPIME HCL 2 GM in 0.9 % SODIUM CHLORIDE 100ML 100 ML IVPB SCH ×2 (11:46→21:08)
[2019-03-13] MEDS: 0.9 % SODIUM CHLORIDE 10ML SYR IVP SCH ×3 (11:46→21:59)
[2019-03-13] MEDS: HEPARIN SODIUM FLUSH 100 UNITS/ML SYR 5ML IVP SCH ×2 (12:20→21:59)
[2019-03-13] MEDS ORDERED: MAGNESIUM HYDROXIDE 30 ML UDC PO PRN (19:51)
[2019-03-13] MEDS: NAPROXEN 250 MG TABLET PO SCH (21:05)
[2019-03-13] MEDS: ROPINIROLE HCL 1 MG TABLET PO SCH (21:06)
[2019-03-14] MEDS: ACETAMINOPHEN 325 MG TAB PO PRN ×2 (04:14→10:03)
[2019-03-14] MEDS: PANTOPRAZOLE SODIUM 40 MG TABLET PO SCH (06:08)
--- NOTE | 2019-03-14 09:18 | Physician Progress Note ---
Subjective - Date Date of Progress Note: 03/14/19 - Admitting Diagnosis Diagnosis: Muscular deconditioning and UTI - Subjective Nursing Care Plan Problem List Activity Intolerance (Swing Bed) Start: 03/11/19 14 :52 Freq: Status: Active Protocol: Created 03/11/19 14:52 SAF (Rec: 03/11/19 14:52 SAF ASTS-1) Altered Thought Process (Fall Risk) Start: 03/11/19 20:47 Freq: Status: Active Protocol: Created 03/11/19 20:47 LMS (Rec: 03/11/19 20:47 LMS ASTS-1) Impaired Mobility (Fall Risk) Start: 03/11/19 20:47 Freq: Status: Active Protocol: Created 03/11/19 20:47 LMS (Rec: 03/11/19 20:47 LMS ASTS-1) Knowledge Deficit (Swing Bed) Start: 03/11/19 14:52 Freq: Status: Active Protocol: Created 03/11/19 14:52 SAF (Rec: 03/11/19 14:52 SAF ASTS-1) Pain (Swing Bed) Start: 03/11/19 14:52 Freq: Status: Active Protocol: Created 03/11/19 14:52 SAF (Rec: 03/11/19 14:52 SAF ASTS-1) Risk for Injury (Fall Risk) Start: 03/11/19 20:47 Freq: Status: Active Protocol: Created 03/11/19 20:47 LMS (Rec: 03/11/19 20:47 LMS ASTS-1) Skin Integrity, Impaired (Swing Bed) Start: 03/12/19 10:56 Freq: Status: Active Protocol: Created 03/12/19 10:56 MMT (Rec: 03/12/19 10:56 MMT ASTS-1) Subjective: 03/14/19 1200 Pt continues to c/o LLE pain, mostly in the foot, and swelling. Spoke with Dr. Zach Luz, the broadcast traffic coordinator who performed the heart catheterization on 03/03/19, who indicated that another doppler of the LLE should be done, even though he had one done [address] Luz indicated that the only concern, r/t to the heart cath, would be a DVT. Pt did have a fall prior to the heart cath and hasn't been able to ambulate well. Had imaging of cervical spine and head. Did not have hip/pelvic xrays while hospitalized at [facility]. Reports some pelvic/hip pain today. Also reports feeling like his BP drops when he stands up and that his vision has been blurry. Did start Requip for RLS a few days ago. Is on Metoprolol 25mg daily - Subjective Detail Comment: No additional complaints except as noted below Cardiovascular: Reports: Other (dizziness) Musculoskeletal: Reports: Neck pain, Other (LLE swelling with foot pain) General - Cognitive Patterns Speech: Soft Thought Process: Intact Thought Content: Normal - Communication Select best description of speech pattern: Clear Speech Ability to express ideas and wants: Usually Understood Understanding verbal content: Usually Understands - Mood and Behavior Patterns Appearance: Disheveled Mood: Normal Attitude: Cooperative Motor Activity: Calm Affect: Appropriate Hallucinations: Denies - Physical Functioning Activity Level: Up with assist x2 Turning: With partial assist ROM Ability: Moves all extremities Assistive Devices: 2 Wheel Walker Ambulation Ability: Needs Assist Bed Mobility: Needs Assist Transfer Ability: Needs Assist Bathing Ability: Needs Assist Personal Hygiene: Needs Assist Dressing Ability: Needs Assist Eating (Feeding) Ability: Independent Toileting Ability: Needs Assist Administer Own Medication: Needs Assist - Continence Bowel Pattern: Constipated Bladder Pattern: Retention Urinary Incontinence: Functional Meds/Allergies - Allergies Allergies Allergy/AdvReac Type Severity Reaction Status Date / Time ciprofloxacin Allergy PT UNSURE Verified 03/08/19 16:51 OF REACTION - Active Medications Current Medications Acetaminophen (Tylenol 325mg) 650 mg PO Q6H PRN PRN Reason: PAIN - MILD(1-4)/FEVER Last Admin: 03/14/19 04:14 Dose: 650 mg Documented by: Ascorbic Acid (Vitamin C) 500 mg PO BID [facility] Aspirin (Ecotrin (Ec)) 81 mg PO DAILY [facility] Last Admin: 03/13/19 09:18 Dose: 81 mg Documented by: Calcium Carbonate/Glycine (Tums) 500 mg PO 1230,1730 [facility] Clopidogrel Bisulfate (Plavix) 75 mg PO DAILY [facility] Last Admin: 03/13/19 09:19 Dose: 75 mg Documented by: Enoxaparin Sodium (Lovenox) 40 mg SQ DAILY [facility] Last Admin: 03/13/19 09:18 Dose: 40 mg Documented by: Ferrous Sulfate (Iron) 325 mg PO BID [facility] Gabapentin (Neurontin) 100 mg PO QHS [facility] Guaifenesin (Mucinex) 600 mg PO BID [facility] Last Admin: 03/13/19 21:05 Dose: 600 mg Documented by: Heparin Sodium (Porcine) () 500 unit IVP Q12H [facility] Last Admin: 03/13/19 21:59 Dose: 500 unit Documented by: CEFEPIME HCL 2 gm/ Sodium (Chloride) 100 mls @ 200 mls/hr IVPB Q12H [facility] Last Infusion: 03/13/19 22:17 Dose: Infused Documented by: Magnesium Hydroxide (Milk Of Magnesium) 30 ml PO DAILY PRN PRN Reason: CONSTIPATION Last Admin: 03/13/19 19:59 Dose: 30 ml Documented by: Metoprolol Succinate (Toprol Xl) 12.5 mg PO DAILY [facility] Naproxen (Naprosyn) 500 mg PO QHS [facility] Last Admin: 03/13/19 21:05 Dose: 500 mg Documented by: Pantoprazole Sodium (Protonix) 40 mg PO DAILYAC [facility] Last Admin: 03/14/19 06:08 Dose: 40 mg Documented by: Polyethylene Glycol (Miralax) 17 gm PO DAILY [facility] Last Admin: 03/13/19 09:18 Dose: 17 gm Documented by: Senna/Docusate Sodium (Senna Plus) 1 each PO DAILY [facility] Last Admin: 03/13/19 09:19 Dose: 1 each Documented by: Sodium Chloride () 10 ml IVP Q12H [facility] Last Admin: 03/13/19 21:59 Dose: 10 ml Documented by: Tramadol HCl (Ultram) 50 mg PO Q4H PRN PRN Reason: PAIN - MOD TO SEVERE (5-10) Objective - Vital Signs Vital Signs: Vital Signs - Last 24 Hrs Temp Pulse Pulse Resp BP Pulse Ox 03/14/19 09:08 74/57 03/14/19 08:58 96 H 105/49 96 03/14/19 07:15 97.7 F 76 16 128/55 94 L 03/13/19 20:00 98.4 F 88 16 142/68 94 L 03/13/19 10:03 79 18 97 - General General Appearance: Alert, Oriented x3, No acute distress - Respiratory Respiratory exam: Normal lung sounds bilaterally - Extremities Extremities exam: Pedal edema (LLE) - Back Back exam: Reports: Normal inspection - Psychiatric Psychiatric exam: Normal affect - Skin Skin exam: Normal color H&P Results - Labs Result Diagrams: 03/13/19 05:58 03/13/19 05:58 Labs Last 24 Hours: Laboratory Results - last 24 hr 03/13/19 03/13/19 06:00 06:00 Iron 28 L TIBC 174 % Saturation 16 L Ferritin 248.1 Discharge Potential - Discharge Needs Community Services Used Prior to Admission: None Patient Discharge Plan Description: Return Home Community Services Needed at Discharge: Home Health Aide, Home Health Nurse, Occupational Therapy, Physical Therapy Discharge Needs Comment: unknown at this time Plan - Swing Bed Certification Initial Certification Due: 03/11/19 14 Day Re-Cert Due: 03/25/19 44 Day Re-Cert Due: 04/24/19 74 Day Re-Cert Due: 05/24/19 - Detailed Diagnosis and Plan (1) Muscular deconditioning Current Visit: No Status: Acute Base Code: R29.898 - OTH SYMPTOMS AND SIGNS INVOLVING THE MUSCULOSKELETAL SYSTEM Comment: 03/14/19 -Admitted to Swing Bed Program for further PT/OT and IV therapy for UTI (2) Orthostatic hypotension Current Visit: Yes Status: Acute Base Code: I95.1 - ORTHOSTATIC HYPOTENSION Comment: 03/14/19 -C/o feeling dizzy when changing position -Orthostatics: sitting 105/49 to standing 74/57 (this was prior to medication administration) -Stop Requip -Hold Metoprolol 25mg for today, restart tomorrow at 12.5mg daily -Fe 325mg PO BID + Vitamin C 500mg PO BID -Orthostatic BP daily (3) Pain of left lower extremity Current Visit: No Status: Acute Base Code: M79.605 - PAIN IN LEFT LEG C omment: 03/14/19 -Continues c/o LLE discomfort, mostly surrounding ankle, 3+ pitting edema -Is sitting up in chair more, with legs in dependent position -Left Foot Xray: No fx, questionable tiny plantar calcaneal spur, possible calcific tendinosis -Consult Podiatry (Dr. Santana), who is to see pt on Thursday03/14/19 -LLE Dopplar Negative for DVT -Left Tib/Fib Xray: negative for fx -Scheduled Naproxen 500mg PO q. HS -Tylenol 650mg PRN -Ultram PRN -Compression stockings to BLE -Spoke with Dr. Zach Luz, broadcast traffic coordinator who performed heart cath, who recommended that another LLE venous dopplar be done. Venous dopplar has been ordered. -X-ray of bilateral hips/pelvis ordered to r/o fracture as hx of fall prior to heart cath unclear (4) UTI (urinary tract infection) Current Visit: No Status: Acute Qualifiers: Hematuria presence: without hematuria Base Code: N39.0 - URINARY TRACT INFECTION, SITE NOT SPECIFIED Comment: 03/14/19 -U/A: Large Blood, +Nitrites, + Leukocytes -C&S: Pseudomonas susceptible to Cefepime -Continue IV Cefepime -Consult with Dr. Copeland on 03/15/19 (5) Urine retention Current Visit: No Status: Acute Base Code: R33.9 - RETENTION OF URINE, UNSPECIFIED Comment: 03/14/19 -Villatoro placed in ED d/t BSV over 800 -Villatoro removed on 03/10/19 with bladder scan monitoring -Unable to urinate after 8 hours, BSV 504 and villatoro replaced -Consult placed to Urology -Appointment with Dr. Copeland at 2pm on Thursday03/15/19 (6) DVT prophylaxis Current Visit: No Status: Acute Base Code: Z29.9 - ENCOUNTER FOR PROPHYLACTIC MEASURES, UNSPECIFIED Comment: 03/14/19 -High Risk -Lovenox 40mg subq daily (7) Full code status Current Visit: No Status: Acute Base Code: Z78.9 - OTHER SPECIFIED HEALTH STATUS Comment: 03/14/19 -Full Code this admission
[2019-03-14] MEDS: CEFEPIME HCL 2 GM in 0.9 % SODIUM CHLORIDE 100ML 100 ML IVPB SCH ×2 (10:01→21:50)
[2019-03-14] MEDS: ENOXAPARIN 40 MG/0.4 ML SYR SQ SCH (10:02)
[2019-03-14] MEDS: ASCORBIC ACID 500 MG TAB PO SCH ×2 (10:03→21:51)
[2019-03-14] MEDS: CLOPIDOGREL 75MG TABLET PO SCH (10:03)
[2019-03-14] MEDS: ASPIRIN 81 MG TABEC PO SCH (10:03)
[2019-03-14] MEDS: GUAIFENESIN 600 MG TABCR PO SCH ×2 (10:03→21:53)
[2019-03-14] MEDS: POLYETHYLENE GLY 17 GM PACKET PO SCH (10:03)
[2019-03-14] MEDS: FERROUS SULFATE 325 MG TAB PO SCH ×2 (10:03→21:52)
[2019-03-14] MEDS: SENNOSIDES/DOCUSATE SODIUM UD CAPSULE PO SCH ×2 (10:04→21:52)
[2019-03-14] MEDS: 0.9 % SODIUM CHLORIDE 10ML SYR IVP SCH ×3 (10:05→22:27)
[2019-03-14] MEDS: BREO (FLUTICASONE/VILANTEROL) 200MCG/25MCG INHALER INH SCH (10:35)
[2019-03-14] MEDS: HEPARIN SODIUM FLUSH 100 UNITS/ML SYR 5ML IVP SCH ×2 (10:47→22:27)
[2019-03-14] MEDS: CALCIUM CARBONATE 500 MG TAB.CHEW PO SCH ×2 (14:06→19:17)
--- NOTE | 2019-03-14 14:19 | Physical Therapy Tx Note ---
Physical Therapy Tx Note - Treatment Note Tolerated: Good Total Time Spent With Patient: 30 Physical Therapy Tx Note: Detail (The patient was in bed when PT arrived. PT assisted MA with orthostatic blood pressure testing. No significant change was noted with positional changes. The patient acheived sit to stand with minimal PA of 1. The patient transferred from bed to wheelchair with minimal assist to CG of 1 and SBA of 1 with use of wheeled walker. The patient was taken to Rehab department and completed marching in place in standing in parallel bars x 5 reps. The patient ambulated in parallel bars 5 feet x2, 3 feet x 1 with CG for safety. shortness of breath was noted with ambulation. The patient completed seated LE strengthening exercises including: toe raises, hip adductor squeezes, hip marching, LAQ, yellow T-band hip abduction and yellow T-band hamstring curls all x 15 reps, gluteal sets x 5 reps. The patient did well with ambulation in parallel bars. Will progress ambulation as tolerated.) Physical Therapy Problem List: Detail (1) Decreased LE strength 2)Assistance with bed mobility and transfers 3) Nonambulatory 4) Decreased standing balance due to LE weakness 5) Decreased ability to complete prolonged physical activity) Physical Therapy Goals: 1) The patient will be independent with bed mobility. 2) The patient will require CG/supervision of 1 with transfers. 3) The patient will ambulated with supervision/CG with appropriate device household distances. 4) Increase LE strength 1/3 muscle grade to improve ambulity to transfer and ambulate. 5) The patient will tolerate 30 min of physical activity with one to two rest periods. Physical Therapy Plan: PT 1-2 times a day M-F for gait training, transfer training, bed mobility, LE strengthening exercises and balance exercises.
--- NOTE | 2019-03-14 14:54 | Occupational Therapy Tx Note ---
Occupational Therapy Tx Note - Treatment Note Tolerated: Good Total Time Spent With Patient: 30 (ADL) Occupational Therapy Treatment Note: Detail (S: Pt reports feeling stronger and ready to go to work. O: Pt pivot transferred to wheelchair from recliner with walker and CG assist. Pt able to propel self to bathroom sink Indly. Pt completed all grooming/hygiene tasks Indly including shaving, washing face, oral hygiene and combing hair. Pt propelled back to room via wheelchair Indly. Pt doffed soiled shirt and donned clean shirt Indly. A: Pt is Ind with grooming/hygiene including set up, Ind with upper body dressing. Mild fatigue noted.) Occupational Therapy Problem List: Detail (1. Decreased Ind with self cares. 2. Decreased activity tolerance needed for safe and Ind return home. 3. Decreased functional mobility needed for self care tasks.) Occupational Therapy Goals: 1. Pt will be Ind with total body dressing. 2. Pt will be Ind with showering in sitting. 3. Pt will be Ind with functional mobility needed for safe and Ind self cares. 4. Pt will demonstrate improved endurance to allow safe and Ind self cares and functional mobility. Prognosis: Good Occupational Therapy Plan: OT 2-4 times per week to address goals and problem list as above.
[2019-03-14] MEDS: GABAPENTIN 100 MG CAPSULE PO SCH (21:51)
[2019-03-14] MEDS: NAPROXEN 250 MG TABLET PO SCH (21:51)
[2019-03-14] MEDS: TRAMADOL HCL 50 MG TABLET PO PRN (22:33)
[2019-03-15 06:39] LABS: ABSOLUTE NEUTROPHIL COUNT 3.29; HEMATOCRIT 30.2 % (42.0-52.0); HEMOGLOBIN 9.6 gm/dl (14.0-18.0); MEAN CELL VOLUME 87.3 fl (81-97); MEAN CORPUSCULAR HEMOGLOBIN 27.7 pg (27-33); MEAN CORPUSCULAR HGB CONC 31.8 g/dl (32-36); MEAN PLATELET VOLUME 11.5 fl (7.4-10.4); PLATELET COUNT 239 K/uL (130-400); RED BLOOD COUNT 3.46 M/uL (4.40-5.70); WHITE BLOOD COUNT W/O DIFF 5.7 K/uL (4.2-12.2)
[2019-03-15 07:01] LABS: ALBUMIN 2.9 g/dL (4.0-5.0); ALKALINE PHOSPHATASE 62 U/L (40-129); ALT/SGPT 43 U/L (<41); AST/SGOT 36 U/L (10.0-50.0); BLOOD UREA NITROGEN 26 mg/dL (8-23); CREATININE 0.8 mg/dL (0.7-1.2); EST GLOMERULAR FILTRATION RATE > 60 mL/min; GLUCOSE,RANDOM 96 mg/dL (74-109); TOTAL PROTEIN 5.7 g/dL (6.6-8.7)
[2019-03-15] MEDS: PANTOPRAZOLE SODIUM 40 MG TABLET PO SCH (07:06)
--- NOTE | 2019-03-15 08:52 | RADIOLOGY REPORT ---
EXAMINATION: Portable chest. CLINICAL HISTORY: Evaluate PICC placement. TECHNIQUE: A single mobile upright view of the chest is obtained. COMPARISON: Portable chest dated 03/10/2019. FINDINGS: A right upper extremity PICC remains in place though it has been pulled back in the interval with its tip at the subclavian vein level. The lung volumes are low. Mild patchy opacities in each lung base are again identified consistent with atelectasis or mild infiltrate. No new lung consolidation, costophrenic angle blunting, or pneumothorax. The heart is at the upper limits of normal in size without pulmonary venous hypertension. The thoracic aorta is tortuous and atherosclerotic. IMPRESSION: 1. The right upper extremity PICC has been pulled back in the interval with its tip now located at the subclavian vein level. 2. Patchy opacities within each lung base consistent with atelectasis or infiltrate, grossly stable. MTDD
[2019-03-15] MEDS: BREO (FLUTICASONE/VILANTEROL) 200MCG/25MCG INHALER INH SCH (09:52)
--- NOTE | 2019-03-15 10:15 | Occupational Therapy Tx Note ---
Occupational Therapy Tx Note - Treatment Note Tolerated: Good Total Time Spent With Patient: 50 (ADL) Occupational Therapy Treatment Note: Detail (S: Pt up in wheelchair, ready for showering. O: Pt propelled self to shower in wheelchair Indly. Sit to stand and pivot transferred to shower seat with grab bars and min assist x 1. Pt doffed t-shirt, hospital pants, briefs and slipper socks with CG for standing while pulling pants over hips. Pt completed showering in sitting with hand held shower Indly. Pt dried self with assist for back and catheter bag. Pt donned t-shirt Indly, he donned briefs and hospital pants with min assist for starting over feet and min assist for sit to stand as well as min assist to pull briefs over hips. Pt donned slipper socks Indly with modified technique. Sit to stand from shower chair using grab bars and he was able to pivot to wheelchair with min assist. Pt was very short of breath at times but with cues he was able to rest and perform pursed lip breathing. Pt applied deoderant and completed oral hygiene Indly at sink. Pt was able to perform partial hair cut with clippers. Pt propelled self back to room in wheelchair. A: Pt requires min assist for lower body dressing, he demonstrates improved endurance although it is still limiting his functional Ind with self cares.) Occupational Therapy Problem List: Detail (1. Decreased Ind with self cares. 2. Decreased activity tolerance needed for safe and Ind return home. 3. Decreased functional mobility needed for self care tasks.) Occupational Therapy Goals: 1. Pt will be Ind with total body dressing. 2. Pt will be Ind with showering in sitting. 3. Pt will be Ind with functional mobility needed for safe and Ind self cares. 4. Pt will demonstrate improved endurance to allow safe and Ind self cares and functional mobility. Prognosis: Good Occupational Therapy Plan: OT 2-4 times per week to address goals and problem list as above.
[2019-03-15] MEDS: CEFEPIME HCL 2 GM in 0.9 % SODIUM CHLORIDE 100ML 100 ML IVPB SCH ×2 (10:52→22:34)
[2019-03-15] MEDS: POLYETHYLENE GLY 17 GM PACKET PO SCH (10:53)
[2019-03-15] MEDS: ASCORBIC ACID 500 MG TAB PO SCH ×2 (10:53→22:36)
[2019-03-15] MEDS: CLOPIDOGREL 75MG TABLET PO SCH (10:53)
[2019-03-15] MEDS: ENOXAPARIN 40 MG/0.4 ML SYR SQ SCH (10:53)
[2019-03-15] MEDS: GUAIFENESIN 600 MG TABCR PO SCH ×2 (10:53→22:35)
[2019-03-15] MEDS: FERROUS SULFATE 325 MG TAB PO SCH ×2 (10:53→22:35)
[2019-03-15] MEDS: ASPIRIN 81 MG TABEC PO SCH (10:54)
[2019-03-15] MEDS: SENNOSIDES/DOCUSATE SODIUM UD CAPSULE PO SCH ×2 (10:54→22:36)
[2019-03-15] MEDS: 0.9 % SODIUM CHLORIDE 10ML SYR IVP SCH ×3 (10:54→23:53)
[2019-03-15] MEDS: METOPROLOL SUCC 25 MG TAB.ER PO SCH (10:54)
[2019-03-15] MEDS: CALCIUM CARBONATE 500 MG TAB.CHEW PO SCH ×2 (11:56→19:37)
[2019-03-15] MEDS: HEPARIN SODIUM FLUSH 100 UNITS/ML SYR 5ML IVP SCH ×2 (11:57→23:53)
--- NOTE | 2019-03-15 14:13 | Physical Therapy Tx Note ---
Physical Therapy Tx Note - Treatment Note Tolerated: Good Total Time Spent With Patient: 30 Physical Therapy Tx Note: Detail (The patient had no new complaints. The paient was taken to Rehab department. The patient ambulated in parallel bars x 5 feet with CG.The patient required moderate/minimal PA of 1 with sit to stand. The patient ambulated with front wheeled walker with Cg and moderate PA of 1, minimal PA of 1 with sit to stand. The patient ambulated 5 feet x 1 and 10 feet x 1. The patient then completed the following LE strengthening exercises: hip adductor squeezes, Yellow T-band hip abduction, Yellow T-band hamstring curls, hip marching, toe raises and LAQ x 15 reps. The patient was also able to wiggle toes and complete trace dorsiflexion. The patient exhibited improved LE strength and improved ability to ambulate.) Physical Therapy Problem List: Detail (1) Decreased LE strength 2)Assistance with bed mobility and transfers 3) Nonambulatory 4) Decreased standing balance due to LE weakness 5) Decreased ability to complete prolonged physical activity) Physical Therapy Goals: 1) The patient will be independent with bed mobility. 2) The patient will require CG/supervision of 1 with transfers. 3) The patient will ambulated with supervision/CG with appropriate device household distances. 4) Increase LE strength 1/3 muscle grade to improve ambulity to transfer and ambulate. 5) The patient will tolerate 30 min of physical activity with one to two rest periods. Physical Therapy Plan: PT 1-2 times a day M-F for gait training, transfer training, bed mobility, LE strengthening exercises and balance exercises.
--- NOTE | 2019-03-15 20:07 | US VENOUS DOPPLER REPORT ---
EXAM: ULTRASOUND VENOUS DOPPLER LOWER EXT LT HISTORY: RECENT HEART CATHETERIZATION. 3+ PITTING EDEMA. TECHNIQUE: Nation-scale, color Doppler, and duplex Doppler evaluation of the deep venous structures of the left lower extremity performed from the external iliac vein level through the calf veins. Additional imaging of the right external iliac, common femoral, and greater saphenous veins also performed. COMPARISON: Venous Doppler lower extremity left dated 03/08/2019. FINDINGS: On the left, the external iliac, common femoral, greater saphenous, deep femoral, all segments of the superficial femoral and popliteal veins are anechoic and completely compressible throughout. Normal venous Doppler waveforms are noted at all of these levels and these waveforms are augmentable. The peroneal, posterior tibial, and anterior tibial veins on the left also appear patent with normal augmentation. No evidence of deep venous thrombosis within the right external iliac, common femoral, and greater saphenous veins. IMPRESSION: NO EVIDENCE OF DEEP VENOUS THROMBOSIS WITHIN THE LEFT LOWER EXTREMITY. JOB NUMBER: [id number] [facility]
[2019-03-15] MEDS: GABAPENTIN 100 MG CAPSULE PO SCH (22:35)
[2019-03-15] MEDS: NAPROXEN 250 MG TABLET PO SCH (22:36)
[2019-03-16] MEDS: PANTOPRAZOLE SODIUM 40 MG TABLET PO SCH (06:44)
--- NOTE | 2019-03-16 08:57 | RADIOLOGY REPORT ---
EXAMINATION: Bilateral hips with pelvis. CLINICAL HISTORY: Bilateral hip pain and pelvis pain post fall. Left lower extremity edema. TECHNIQUE: An AP view of the pelvis is obtained as well as frog-leg lateral views of each hip. COMPARISON: None. ENCOUNTER: Initial. FINDINGS: Diffuse osteopenia mildly limits evaluation. No acute fracture, dislocation, or destructive bone lesion is seen. 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 No periarticular erosion. Vascular calcifications are scattered within the pelvis. A Villa catheter is likely in place though its tip is not well visualized. The sacroiliac joints are symmetric with minor degeneration. IMPRESSION: 1. No acute fracture nor dislocation. 2. Mild degenerative changes. MTDD
[2019-03-16] MEDS: BREO (FLUTICASONE/VILANTEROL) 200MCG/25MCG INHALER INH SCH (09:58)
--- NOTE | 2019-03-16 10:15 | Physician Progress Note ---
Subjective - Date Date of Progress Note: 03/16/19 - Admitting Diagnosis Diagnosis: Muscular deconditioning and UTI - Subjective Nursing Care Plan Problem List Activity Intolerance (Swing Bed) Start: 03/11/19 14 :52 Freq: Status: Active Protocol: Created 03/11/19 14:52 SAF (Rec: 03/11/19 14:52 SAF [email or web address]-1) Altered Thought Process (Fall Risk) Start: 03/11/19 20:47 Freq: Status: Active Protocol: Created 03/11/19 20:47 LMS (Rec: 03/11/19 20:47 LMS [email or web address]-1) Impaired Mobility (Fall Risk) Start: 03/11/19 20:47 Freq: Status: Active Protocol: Created 03/11/19 20:47 LMS (Rec: 03/11/19 20:47 LMS ASTS-1) Knowledge Deficit (Swing Bed) Start: 03/11/19 14:52 Freq: Status: Active Protocol: Created 03/11/19 14:52 SAF (Rec: 03/11/19 14:52 SAF ASTS-1) Pain (Swing Bed) Start: 03/11/19 14:52 Freq: Status: Active Protocol: Created 03/11/19 14:52 SAF (Rec: 03/11/19 14:52 SAF ASTS-1) Risk for Injury (Fall Risk) Start: 03/11/19 20:47 Freq: Status: Active Protocol: Created 03/11/19 20:47 LMS (Rec: 03/11/19 20:47 LMS ASTS-1) Skin Integrity, Impaired (Swing Bed) Start: 03/12/19 10:56 Freq: Status: Active Protocol: Created 03/12/19 10:56 MMT (Rec: 03/12/19 10:56 MMT ASTS-1) - Subjective Detail Comment: No additional complaints except as noted below General - Cognitive Patterns Speech: Soft Thought Process: Intact Thought Content: Normal - Communication Select best description of speech pattern: Clear Speech Ability to express ideas and wants: Usually Understood Understanding verbal content: Usually Understands - Mood and Behavior Patterns Appearance: Disheveled Mood: Normal Attitude: Cooperative Motor Activity: Calm Affect: Appropriate Hallucinations: Denies - Physical Functioning Activity Level: Up with assist x2 Turning: With partial assist ROM Ability: Limited/Compromised Assistive Devices: 2 Wheel Walker, Wheel Chair Ambulation Ability: Needs Assist Bed Mobility: Needs Assist Transfer Ability: Needs Assist Bathing Ability: Needs Assist Personal Hygiene: Needs Assist Dressing Ability: Needs Assist Eating (Feeding) Ability: Independent Toileting Ability: Needs Assist Administer Own Medication: Needs Assist - Continence Bowel Pattern: Constipated Bladder Pattern: Retention Urinary Incontinence: Functional Meds/Allergies - Allergies Allergies Allergy/AdvReac Type Severity Reaction Status Date / Time ciprofloxacin Allergy PT UNSURE Verified 03/08/19 16:51 OF REACTION - Active Medications Current Medications Acetaminophen (Tylenol 325mg) 650 mg PO Q6H PRN PRN Reason: PAIN - MILD(1-4)/FEVER Last Admin: 03/14/19 10:03 Dose: 650 mg Documented by: Ascorbic Acid (Vitamin C) 500 mg PO BID [facility] Last Admin: 03/15/19 22:36 Dose: 500 mg Documented by: Aspirin (Ecotrin (Ec)) 81 mg PO DAILY [facility] Last Admin: 03/15/19 10:54 Dose: 81 mg Documented by: Calcium Carbonate/Glycine (Tums) 500 mg PO 1230,1730 [facility] Last Admin: 03/15/19 19:37 Dose: 500 mg Documented by: Clopidogrel Bisulfate (Plavix) 75 mg PO DAILY [facility] Last Admin: 03/15/19 10:53 Dose: 75 mg Documented by: Enoxaparin Sodium (Lovenox) 40 mg SQ DAILY [facility] Last Admin: 03/15/19 10:53 Dose: 40 mg Documented by: Ferrous Sulfate (Iron) 325 mg PO BID [facility] Last Admin: 03/15/19 22:35 Dose: 325 mg Documented by: Gabapentin (Neurontin) 100 mg PO QHS [facility] Last Admin: 03/15/19 22:35 Dose: 100 mg Documented by: Guaifenesin (Mucinex) 600 mg PO BID [facility] Last Admin: 03/15/19 22:35 Dose: 600 mg Documented by: Heparin Sodium (Porcine) () 500 unit IVP Q12H [facility] Last Admin: 03/15/19 23:53 Dose: 500 unit Documented by: CEFEPIME HCL 2 gm/ Sodium (Chloride) 100 mls @ 200 mls/hr IVPB Q12H [facility] Last Infusion: 03/15/19 23:05 Dose: Infused Documented by: Magnesium Hydroxide (Milk Of Magnesium) 30 ml PO DAILY PRN PRN Reason: CONSTIPATION Last Admin: 03/13/19 19:59 Dose: 30 ml Documented by: Metoprolol Succinate (Toprol Xl) 12.5 mg PO DAILY [facility] Last Admin: 03/15/19 10:54 Dose: 12.5 mg Documented by: Naproxen (Naprosyn) 500 mg PO QHS [facility] Last Admin: 03/15/19 22:36 Dose: 500 mg Documented by: Pantoprazole Sodium (Protonix) 40 mg PO DAILYAC [facility] Last Admin: 03/16/19 06:44 Dose: 40 mg Documented by: Polyethylene Glycol (Miralax) 17 gm PO DAILY [facility] Last Admin: 03/15/19 10:53 Dose: 17 gm Documented by: Senna/Docusate Sodium (Senna Plus) 1 each PO BID [facility] Last Admin: 03/15/19 22:36 Dose: 1 each Documented by: Sodium Chloride () 10 ml IVP Q12H [facility] Last Admin: 03/15/19 23:53 Dose: 10 ml Documented by: Tramadol HCl (Ultram) 50 mg PO Q4H PRN PRN Reason: PAIN - MOD TO SEVERE (5-10) Last Admin: 03/14/19 22:33 Dose: 50 mg Documented by: Objective - Vital Signs Vital Signs: Vital Signs - Last 24 Hrs Temp Pulse Resp BP Pulse Ox 03/16/19 08:00 97.9 F 76 18 171/79 100 03/15/19 20:00 98.2 F 79 16 140/58 96 - General General Appearance: Alert, Oriented x3, Cooperative, No acute distress - Head Head exam: Atraumatic - Eye Eye exam: Normal appearance, PERRL - ENT ENT exam: Normal exam, Mucous membranes moist - Respiratory Respiratory exam: Normal lung sounds bilaterally - Cardiovascular Cardiovascular Exam: Regular rate, Normal rhythm Peripheral Pulses: 2+: Radial (R), Radial (L) - GI/Abdominal GI/Abdominal exam: Soft, Normal bowel sounds - Rectal Rectal exam: Deferred - exam: Deferred - Extremities Extremities exam: Pedal edema (bilateral, 2+ pitting, L>R) - Back Back exam: Reports: Normal inspection - Neurological Neurological exam: Abnormal gait (weakness, suffling, Left foot drop), CN II-XII intact, Oriented X3 - Psychiatric Psychiatric exam: Normal affect, Normal mood - Skin Skin exam: Normal color H&P Results - Labs Result Diagrams: 03/15/19 06:10 03/15/19 06:10 - Imaging and Cardiology CT scan - head Status: Report reviewed Discharge Potential - Discharge Needs Community Services Used Prior to Admission: None Patient Discharge Plan Description: Return Home Community Services Needed at Discharge: Home Health Aide, Home Health Nurse, Occupational Therapy, Physical Therapy Discharge Needs Comment: unknown at this time Plan - Swing Bed Certification Initial Certification Due: 03/11/19 14 Day Re-Cert Due: 03/25/19 44 Day Re-Cert Due: 04/24/19 74 Day Re-Cert Due: 05/24/19 - Detailed Diagnosis and Plan (1) Muscular deconditioning Current Visit: No Status: Acute Base Code: R29.898 - OTH SYMPTOMS AND SIGNS INVOLVING THE MUSCULOSKELETAL SYSTEM Comment: 03/15/19 -Admitted to Swing Bed Program for further PT/OT -Patient making progress in endurance and ambulation within halls -Continued work with PT/OT (2) Pain of left lower extremity Current Visit: No Status: Acute Base Code: M79.605 - PAIN IN LEFT LEG Comment: 03/16/19 -Continues c/o LLE discomfort, mostly surrounding ankle, 2+ pitting edema -Is sitting up in chair more, with legs in dependent position -Left Foot Xray: No fx, questionable tiny plantar calcaneal spur, possible calcific tendinosis -Consult Podiatry (Dr. Santana), who saw pt on Thursday03/14/19, no further interventions recommended -LLE Dopplar Negative for DVT -Left Tib/Fib Xray: negative for fx -Scheduled Naproxen 500mg PO q. HS -Tylenol 650mg PRN -Ultram PRN -Compression stockings to BLE -Spoke with Dr. Zach Luz, gas pump attendant who performed heart cath, who recommended that another LLE venous dopplar be done. Venous dopplar has been ordered. -X-ray of bilateral hips/pelvis ordered to r/o fracture as hx of fall prior to heart cath unclear: negative for acute process (3) UTI (urinary tract infection) Current Visit: No Status: Acute Qualifiers: Hematuria presence: without hematuria Base Code: N39.0 - URINARY TRACT INFECTION, SITE NOT SPECIFIED Comment: 03/16/19 -U/A: Large Blood, +Nitrites, + Leukocytes -C&S: Pseudomonas susceptible to Cefepime -Continue IV Cefepime IV x 10 days -Consult with Dr. Copeland on 03/15/19 (4) Urine retention Current Visit: No Status: Acute Base Code: R33.9 - RETENTION OF URINE, UNSPECIFIED Comment: 03/16/19 -Villatoro placed in ED d/t BSV over 800 -Villatoro removed on 03/10/19 with bladder scan monitoring -Unable to urinate after 8 hours, BSV 504 and villatoro replaced -Appointment with Dr. Copeland at 2pm on Thursday03/15/19, recommended repeat trial of bladder scans. Patient failed with PVR of 800ml, villatoro replaced 03/15 (5) Left-sided weakness Current Visit: Yes Status: Acute Base Code: R53.1 - WEAKNESS Comment: 03/16/19: -Patient reports left-sided leg weakness and arm weakness noted over past 2 days -No new falls -Recent Head CT at [facility] 02/27/19: negative for acute process -Significant left-sided foot drop noted on ambulation -Repeat head CT 03/15/19: negative for acute process -Continue working with PT/OT -Deconditioning vs lumbar spine involvement -Continue with Neurontin qhs for restless legs and increased pain at night (6) DVT prophylaxis Current Visit: No Status: Acute Base Code: Z29.9 - ENCOUNTER FOR PROPHYLACTIC MEASURES, UNSPECIFIED Comment: 03/16/19 -High Risk -Lovenox 40mg subq daily (7) Full code status Current Visit: No Status: Acute Base Code: Z78.9 - OTHER SPECIFIED HEALTH STATUS Comment: 03/16/19 -Full Code this admission
[2019-03-16] MEDS: POLYETHYLENE GLY 17 GM PACKET PO SCH (10:18)
[2019-03-16] MEDS: ENOXAPARIN 40 MG/0.4 ML SYR SQ SCH (10:19)
[2019-03-16] MEDS: 0.9 % SODIUM CHLORIDE 10ML SYR IVP SCH ×3 (10:19→23:12)
[2019-03-16] MEDS: GUAIFENESIN 600 MG TABCR PO SCH ×2 (10:19→22:25)
[2019-03-16] MEDS: CEFEPIME HCL 2 GM in 0.9 % SODIUM CHLORIDE 100ML 100 ML IVPB SCH ×2 (10:19→22:21)
[2019-03-16] MEDS: METOPROLOL SUCC 25 MG TAB.ER PO SCH (10:20)
[2019-03-16] MEDS: CLOPIDOGREL 75MG TABLET PO SCH (10:20)
[2019-03-16] MEDS: SENNOSIDES/DOCUSATE SODIUM UD CAPSULE PO SCH ×2 (10:20→22:26)
[2019-03-16] MEDS: ASPIRIN 81 MG TABEC PO SCH (10:20)
[2019-03-16] MEDS: FERROUS SULFATE 325 MG TAB PO SCH ×2 (10:23→22:25)
[2019-03-16] MEDS: ASCORBIC ACID 500 MG TAB PO SCH ×2 (10:23→22:26)
[2019-03-16] MEDS: HEPARIN SODIUM FLUSH 100 UNITS/ML SYR 5ML IVP SCH ×2 (11:22→23:11)
--- NOTE | 2019-03-16 14:51 | Occupational Therapy Tx Note ---
Occupational Therapy Tx Note - Treatment Note Tolerated: Good Total Time Spent With Patient: 30 (ther ex) Occupational Therapy Treatment Note: Detail (S: Pt up in recliner chair, feeling good today. O: Sit to stand and pivot transferred to wheelchair with min assist x 1. Pt transported to rehab gym via wheelchair. Pt completed reno UE endurance activities including reaching at and above shoulder height with resisted clothespins x 35 reps right hand and 10 reps left hand, reno hand tire service technician strengthening with red theraputty x 5 min and reno UE supination with red flex tube x 10 reps and reno UE pronation with red flex tube x 10 reps. Pt reports his left arm and reno hands were affected when he had a spur in his neck many years ago. Exercises were completed with modifications as needed due to hand and arm deformities. Pt transported back to room via wheelchair. Sit to stand from wheelchair with walker and transferred to recliner with min assist. Pt left in room with call button in reach. A: Pt requires min assist for sit to stand at times, overall endurance significantly improving) Occupational Therapy Problem List: Detail (1. Decreased Ind with self cares. 2. Decreased activity tolerance needed for safe and Ind return home. 3. Decreased functional mobility needed for self care tasks.) Occupational Therapy Goals: 1. Pt will be Ind with total body dressing. 2. Pt will be Ind with showering in sitting. 3. Pt will be Ind with functional mobility needed for safe and Ind self cares. 4. Pt will demonstrate improved endurance to allow safe and Ind self cares and functional mobility. Prognosis: Good Occupational Therapy Plan: OT 2-4 times per week to address goals and problem list as above.
[2019-03-16] MEDS: CALCIUM CARBONATE 500 MG TAB.CHEW PO SCH ×2 (15:57→19:35)
--- NOTE | 2019-03-16 16:41 | Physical Therapy Tx Note ---
Physical Therapy Tx Note - Treatment Note Tolerated: Good Total Time Spent With Patient: 30 Physical Therapy Tx Note: Detail (The patient was up in chair when PT arrived. The patient stated his blood pressure dropped around lunch time. The patient stated he did not feel light headed currently. The patient required min/mod PA of 1 for sit to stand from recliner. The patient transferred to wheelchair with CG of 1. The patient was taken to Rehab department and ambulated 140 feet x 1 with CG for safety and minimal shortness of breath. The patient then completed the following LE exercises: L LE toe wiggles and partial ankle pumps, bilateral hip marching, hip adductor squeezes, Red T-band hip abduction and hamstring curls, LAQ's all x 15 reps. The patient was taken back to his room and completed wheelchair to recliner transfer with CG and CG/Min PA for sit to stand from wheelchair. The patient was left in recliner with call light within reach. The patient continues to improve ambulation distance daily.) Physical Therapy Problem List: Detail (1) Decreased LE strength 2)Assistance with bed mobility and transfers 3) Nonambulatory 4) Decreased standing balance due to LE weakness 5) Decreased ability to complete prolonged physical activity) Physical Therapy Goals: 1) The patient will be independent with bed mobility. 2) The patient will require CG/supervision of 1 with transfers. 3) The patient will ambulated with supervision/CG with appropriate device household distances. 4) Increase LE strength 1/3 muscle grade to improve ambulity to transfer and ambulate. 5) The patient will tolerate 30 min of physical activity with one to two rest periods. Physical Therapy Plan: PT 1-2 times a day M-F for gait training, transfer training, bed mobility, LE strengthening exercises and balance exercises.
[2019-03-16] MEDS: NAPROXEN 250 MG TABLET PO SCH (22:26)
[2019-03-16] MEDS: GABAPENTIN 100 MG CAPSULE PO SCH (22:26)
[2019-03-17] MEDS: PANTOPRAZOLE SODIUM 40 MG TABLET PO SCH (06:21)
[2019-03-17] MEDS: BREO (FLUTICASONE/VILANTEROL) 200MCG/25MCG INHALER INH SCH (10:16)
[2019-03-17] MEDS: CLOPIDOGREL 75MG TABLET PO SCH (11:34)
[2019-03-17] MEDS: CALCIUM CARBONATE 500 MG TAB.CHEW PO SCH ×2 (11:34→18:24)
[2019-03-17] MEDS: METOPROLOL SUCC 25 MG TAB.ER PO SCH (11:34)
[2019-03-17] MEDS: SENNOSIDES/DOCUSATE SODIUM UD CAPSULE PO SCH ×2 (11:34→21:09)
[2019-03-17] MEDS: FERROUS SULFATE 325 MG TAB PO SCH ×2 (11:34→21:09)
[2019-03-17] MEDS: GUAIFENESIN 600 MG TABCR PO SCH ×2 (11:34→21:09)
[2019-03-17] MEDS: ASPIRIN 81 MG TABEC PO SCH (11:35)
[2019-03-17] MEDS: ENOXAPARIN 40 MG/0.4 ML SYR SQ SCH (11:35)
[2019-03-17] MEDS: ASCORBIC ACID 500 MG TAB PO SCH ×2 (11:35→21:09)
[2019-03-17] MEDS: POLYETHYLENE GLY 17 GM PACKET PO SCH (11:35)
[2019-03-17] MEDS: CEFEPIME HCL 2 GM in 0.9 % SODIUM CHLORIDE 100ML 100 ML IVPB SCH ×2 (11:36→21:08)
[2019-03-17] MEDS: 0.9 % SODIUM CHLORIDE 10ML SYR IVP SCH ×2 (11:36→22:01)
[2019-03-17] MEDS: HEPARIN SODIUM FLUSH 100 UNITS/ML SYR 5ML IVP SCH ×2 (11:36→22:01)
--- NOTE | 2019-03-17 11:45 | Physical Therapy Tx Note ---
Physical Therapy Tx Note - Treatment Note Tolerated: Good Total Time Spent With Patient: 50 Physical Therapy Tx Note: Detail (Pt sitting up in bedside chair upon arrival, stated he didn't feel well, that he kept falling asleep in the chair, possibly didn't sleep well last night. When given the choice to work in his room or go to therapy department, he wanted to go to therapy department. Transferred from recliner to wheelchair w/front wheeled walker w/CGA. Transported to rehab; ambulated about 64 feet w/front wheeled walker and CGA to parallel bars, where he walked forward/backward x 2 laps. Sat in wheelchair for LE and UE exercises: seated marching, knee extension, ankle dorsiflexion, isometric hip adduction w/ball, hip abduction w/red theraband, knee flexion w/red theraband, ankle plantarflexion w/red theraband, all x 10 each B. Using play ball, did B shoulder flexion, push/pull, elbow flex/ext x 10 ea B. Stood from wheelchair w/CGA, ambulated through parallel bars, to front wheeled walker, all the way to back rehab door (about 135 feet), w/CGA. One minor loss of balance requiring CGA to regain. Transferred to wheelchair and transported back to room. Transferred from w/c to recliner with front wheeled walker, w/CGA. Was pleased with how well he did, felt encouraged, stated "I need to walk." All transfers required CGA. Left up in recliner with call light in reach; and daughter present in room. Nrsg notified.) Physical Therapy Problem List: Detail (1) Decreased LE strength 2)Assistance with bed mobility and transfers 3) Nonambulatory 4) Decreased standing balance due to LE weakness 5) Decreased ability to complete prolonged physical activity) Physical Therapy Goals: 1) The patient will be independent with bed mobility. 2) The patient will require CG/supervision of 1 with transfers. 3) The patient will ambulated with supervision/CG with appropriate device household distances. 4) Increase LE strength 1/3 muscle grade to improve ambulity to transfer and ambulate. 5) The patient will tolerate 30 min of physical activity with one to two rest periods. Prognosis: Good Physical Therapy Plan: PT 1-2 times a day M-F for gait training, transfer training, bed mobility, LE strengthening exercises and balance exercises.
--- NOTE | 2019-03-17 15:28 | Physical Therapy Tx Note ---
Physical Therapy Tx Note - Treatment Note Tolerated: Good Total Time Spent With Patient: 45 Physical Therapy Tx Note: Detail (Pt sitting up in recliner upon arrival, family in room. Agreeable for therapy. Sit/stand to front wheeled walker w/SBA, ambulated to wheelchair across room, sat in wheelchair w/CGA. Transported to rehab in wheelchair. Ambulated about 64 feet (from hydrocollators to parallel bars) with front wheeled walker and CGA, into bars for LE exercises in standin reps each B of hip flexion, abduction, extension. Rested for several minutes in sitting then resumed standing independently using bars. Performed 10 mini squats, then static balance training in normal stance and stride stances, with head movements and with eyes closed in normal stance only. Did 5 step ups R/L w/3" step. Sat and rested again, then stood independently in bars, ambulated 64 feet again to wheelchair. Transported back to med surg unit. Ambulated from nrsg station into room, w/CGA (about 25 feet). Good control with all transfers. Reported mild fatigue at end of session. Left up in recliner w/family present, call light in reach.) Physical Therapy Problem List: Detail (1) Decreased LE strength 2)Assistance with bed mobility and transfers 3) Nonambulatory 4) Decreased standing balance due to LE weakness 5) Decreased ability to complete prolonged physical activity) Physical Therapy Goals: 1) The patient will be independent with bed mobility. 2) The patient will require CG/supervision of 1 with transfers. 3) The patient will ambulated with supervision/CG with appropriate device household distances. 4) Increase LE strength 1/3 muscle grade to improve ambulity to transfer and ambulate. 5) The patient will tolerate 30 min of physical activity with one to two rest periods. Prognosis: Good Physical Therapy Plan: PT 1-2 times a day M-F for gait training, transfer training, bed mobility, LE strengthening exercises and balance exercises.
[2019-03-17] MEDS: GABAPENTIN 100 MG CAPSULE PO SCH (21:09)
[2019-03-17] MEDS: NAPROXEN 250 MG TABLET PO SCH (21:09)
[2019-03-18] MEDS: PANTOPRAZOLE SODIUM 40 MG TABLET PO SCH (06:03)
--- NOTE | 2019-03-18 08:03 | Occupational Therapy Tx Note ---
Occupational Therapy Tx Note - Treatment Note Tolerated: Good Total Time Spent With Patient: 35 (ADL) Occupational Therapy Treatment Note: Detail (S: Pt up in chair, ready for OT. O: Sit to stand with min assist to 2 wheeled walker. Pt amb 15 feet to shower seat with walker and CG assist. Pt untied hospital pants and pulled pants and briefs over hips with min assist for balance. Pt seated on shower seat with grab bar and min assist. Pt doffed hospital pants, briefs and slipper socks over feet Indly including catheter mgmt. Pt required assist for doffing rambo sock. Pt doffed t-shirt Indly. Pt completed partial body showering in sitting Indly after set up. Pt dried self Indly. Pt sit to stand with grab bar and SBA and ambulated to recliner with 2 wheeled walker and CG assist. Stand to sit Indly. Pt donned t-shirt Indly. Pt donned briefs with assist to start over right foot and catheter mgmt, donned hospital pants with assist for catheter mgmt and sit to stand with CG assist. Pt stood to pull pants over hips with min assist to maintain balance and verbal cues to lean forward as he tends to lean backwards. Stand to sit Indly. Pt donned slipper socks Indly and combed hair Indly. Pt left up in chair with call button in reach. A: Pt requires min assist for self cares including sit to stand, standing balance and pants/catheter mgmt. Endurance is significantly improving.) Occupational Therapy Problem List: Detail (1. Decreased Ind with self cares. 2. Decreased activity tolerance needed for safe and Ind return home. 3. Decreased functional mobility needed for self care tasks.) Occupational Therapy Goals: 1. Pt will be Ind with total body dressing. 2. Pt will be Ind with showering in sitting. 3. Pt will be Ind with functional mobility needed for safe and Ind self cares. 4. Pt will demonstrate improved endurance to allow safe and Ind self cares and functional mobility. Prognosis: Good Occupational Therapy Plan: OT 2-4 times per week to address goals and problem list as above.
--- NOTE | 2019-03-18 08:58 | CT SCAN REPORT ---
STUDY: CT head without contrast. INDICATION: Left-sided weakness. COMPARISON: None. TECHNIQUE: Standard CT imaging of the head without contrast. Coronal and sagittal reformations are provided. Hand dominance unknown. FINDINGS: The sulci and ventricles are normal for patient's age. No intracranial hemorrhage or extraaxial fluid collection is identified. No significant mass effect or midline shift. Nation white matter differentiation is maintained. Mild patchy hypodensity in the white matter is nonspecific but likely chronic small vessel ischemic changes. There is a small remote lacunar infarct in the left basal ganglia. There has been prior posterior craniotomy at the craniocervical junction. IMPRESSION: Negative noncontrast CT of the head for acute intracranial abnormality. MTDD
[2019-03-18] MEDS: SENNOSIDES/DOCUSATE SODIUM UD CAPSULE PO SCH ×2 (10:01→21:04)
[2019-03-18] MEDS: POLYETHYLENE GLY 17 GM PACKET PO SCH (10:01)
[2019-03-18] MEDS: GUAIFENESIN 600 MG TABCR PO SCH ×2 (10:01→21:04)
[2019-03-18] MEDS: ENOXAPARIN 40 MG/0.4 ML SYR SQ SCH (10:02)
[2019-03-18] MEDS: ASPIRIN 81 MG TABEC PO SCH (10:02)
[2019-03-18] MEDS: FERROUS SULFATE 325 MG TAB PO SCH ×2 (10:02→21:04)
[2019-03-18] MEDS: METOPROLOL SUCC 25 MG TAB.ER PO SCH (10:02)
[2019-03-18] MEDS: CLOPIDOGREL 75MG TABLET PO SCH (10:02)
[2019-03-18] MEDS: ASCORBIC ACID 500 MG TAB PO SCH ×2 (10:02→21:04)
[2019-03-18] MEDS: CEFEPIME HCL 2 GM in 0.9 % SODIUM CHLORIDE 100ML 100 ML IVPB SCH ×2 (10:06→21:05)
[2019-03-18] MEDS: BREO (FLUTICASONE/VILANTEROL) 200MCG/25MCG INHALER INH SCH (10:22)
[2019-03-18] MEDS: 0.9 % SODIUM CHLORIDE 10ML SYR IVP SCH ×3 (10:33→21:38)
[2019-03-18] MEDS: HEPARIN SODIUM FLUSH 100 UNITS/ML SYR 5ML IVP SCH ×2 (10:34→21:38)
[2019-03-18] MEDS: CALCIUM CARBONATE 500 MG TAB.CHEW PO SCH ×2 (12:29→18:10)
--- NOTE | 2019-03-18 15:00 | Physical Therapy Tx Note ---
Physical Therapy Tx Note - Treatment Note Tolerated: Good Total Time Spent With Patient: 30 Physical Therapy Tx Note: Detail (The patient was in bathroom when PT arrived. The patient ambulated to wheelchair from bathroom (7 feet) with supervision for safety. The patient was taken to Rehab department and ambulated on 3 steps with use of 2 railings x 2 with CG, supervision of 1 for safety. The patient then completed the following exercises in the parallel bars: balance with feet close together without perturbations, balance with eyes closed. LE strengtheining exercises ie: squats, toe raises, L hip extension and abduction. The patient then ambulated with front wheeled walker 120 feet x 1 with one incident of L knee buckling. The patient was then returned to room. The patient required more then one attempt for sit to stand due to LE fatigue. The patient transferred with CG of 1. The patient continues to progress well with mobility.) Physical Therapy Problem List: Detail (1) Decreased LE strength 2)Assistance with bed mobility and transfers 3) Nonambulatory 4) Decreased standing balance due to LE weakness 5) Decreased ability to complete prolonged physical activity) Physical Therapy Goals: 1) The patient will be independent with bed mobility. 2) The patient will require CG/supervision of 1 with transfers. 3) The patient will ambulated with supervision/CG with appropriate device household distances. 4) Increase LE strength 1/3 muscle grade to improve ambulity to transfer and ambulate. 5) The patient will tolerate 30 min of physical activity with one to two rest periods. Physical Therapy Plan: PT 1-2 times a day M-F for gait training, transfer training, bed mobility, LE strengthening exercises and balance exercises.
[2019-03-18] MEDS: NAPROXEN 250 MG TABLET PO SCH (21:03)
[2019-03-19] MEDS: PANTOPRAZOLE SODIUM 40 MG TABLET PO SCH (06:10)
[2019-03-19] MEDS: CEFEPIME HCL 2 GM in 0.9 % SODIUM CHLORIDE 100ML 100 ML IVPB SCH ×2 (09:10→21:21)
[2019-03-19] MEDS: METOPROLOL SUCC 25 MG TAB.ER PO SCH (09:11)
[2019-03-19] MEDS: POLYETHYLENE GLY 17 GM PACKET PO SCH (09:11)
[2019-03-19] MEDS: SENNOSIDES/DOCUSATE SODIUM UD CAPSULE PO SCH ×2 (09:11→21:31)
[2019-03-19] MEDS: CLOPIDOGREL 75MG TABLET PO SCH (09:12)
[2019-03-19] MEDS: ENOXAPARIN 40 MG/0.4 ML SYR SQ SCH (09:12)
[2019-03-19] MEDS: ASCORBIC ACID 500 MG TAB PO SCH ×2 (09:12→21:31)
[2019-03-19] MEDS: TAMSULOSIN HCL 0.4 MG CAP.ER.24H PO SCH (09:12)
[2019-03-19] MEDS: FERROUS SULFATE 325 MG TAB PO SCH ×2 (09:12→21:31)
[2019-03-19] MEDS: ASPIRIN 81 MG TABEC PO SCH (09:13)
[2019-03-19] MEDS: GUAIFENESIN 600 MG TABCR PO SCH ×2 (09:15→21:34)
[2019-03-19] MEDS: HEPARIN SODIUM FLUSH 100 UNITS/ML SYR 5ML IVP SCH ×2 (09:40→22:25)
[2019-03-19] MEDS: BREO (FLUTICASONE/VILANTEROL) 200MCG/25MCG INHALER INH SCH (10:00)
[2019-03-19] MEDS: 0.9 % SODIUM CHLORIDE 10ML SYR IVP SCH ×2 (10:14→22:25)
[2019-03-19] MEDS: CALCIUM CARBONATE 500 MG TAB.CHEW PO SCH ×2 (15:06→18:49)
[2019-03-19] MEDS: NAPROXEN 250 MG TABLET PO SCH (21:31)
[2019-03-20] MEDS: PANTOPRAZOLE SODIUM 40 MG TABLET PO SCH (06:08)
[2019-03-20] MEDS: BREO (FLUTICASONE/VILANTEROL) 200MCG/25MCG INHALER INH SCH (10:04)
[2019-03-20] MEDS: FERROUS SULFATE 325 MG TAB PO SCH ×2 (10:12→21:09)
[2019-03-20] MEDS: ASPIRIN 81 MG TABEC PO SCH (10:12)
[2019-03-20] MEDS: TAMSULOSIN HCL 0.4 MG CAP.ER.24H PO SCH (10:13)
[2019-03-20] MEDS: ASCORBIC ACID 500 MG TAB PO SCH ×2 (10:13→21:09)
[2019-03-20] MEDS: GUAIFENESIN 600 MG TABCR PO SCH ×2 (10:14→21:09)
[2019-03-20] MEDS: ENOXAPARIN 40 MG/0.4 ML SYR SQ SCH (10:14)
[2019-03-20] MEDS: METOPROLOL SUCC 25 MG TAB.ER PO SCH (10:14)
[2019-03-20] MEDS: POLYETHYLENE GLY 17 GM PACKET PO SCH (10:14)
[2019-03-20] MEDS: CLOPIDOGREL 75MG TABLET PO SCH (10:15)
[2019-03-20] MEDS: SENNOSIDES/DOCUSATE SODIUM UD CAPSULE PO SCH ×2 (10:15→21:10)
[2019-03-20] MEDS: HEPARIN SODIUM FLUSH 100 UNITS/ML SYR 5ML IVP SCH (10:15)
[2019-03-20] MEDS: 0.9 % SODIUM CHLORIDE 10ML SYR IVP SCH (10:15)
[2019-03-20 11:50] LABS: URINE APPEARANCE CLEAR; URINE BILIRUBIN NEGATIVE (NEGATIVE); URINE BLOOD NEGATIVE (NEGATIVE); URINE COLOR YELLOW; URINE GLUCOSE (UA) NEGATIVE (NEGATIVE); URINE KETONE NEGATIVE (NEGATIVE); URINE LEUKOCYTE ESTERASE NEGATIVE (NEGATIVE); URINE NITRITE NEGATIVE (NEGATIVE); URINE PROTEIN NEGATIVE (NEGATIVE); URINE UROBILINOGEN 0.2 E.U./dL (0.20 - 1.00)
[2019-03-20] MEDS: CALCIUM CARBONATE 500 MG TAB.CHEW PO SCH ×2 (13:24→18:11)
[2019-03-20] MEDS: ACETAMINOPHEN 325 MG TAB PO PRN (18:13)
[2019-03-20] MEDS: NAPROXEN 250 MG TABLET PO SCH (21:09)
[2019-03-21] MEDS: PANTOPRAZOLE SODIUM 40 MG TABLET PO SCH (06:09)
[2019-03-21] MEDS: ENOXAPARIN 40 MG/0.4 ML SYR SQ SCH (09:29)
[2019-03-21] MEDS: ASPIRIN 81 MG TABEC PO SCH (09:29)
[2019-03-21] MEDS: FERROUS SULFATE 325 MG TAB PO SCH ×2 (09:29→21:21)
[2019-03-21] MEDS: SENNOSIDES/DOCUSATE SODIUM UD CAPSULE PO SCH ×2 (09:29→21:21)
[2019-03-21] MEDS: POLYETHYLENE GLY 17 GM PACKET PO SCH (09:29)
[2019-03-21] MEDS: ASCORBIC ACID 500 MG TAB PO SCH ×2 (09:29→21:21)
[2019-03-21] MEDS: GUAIFENESIN 600 MG TABCR PO SCH (09:29)
[2019-03-21] MEDS: CLOPIDOGREL 75MG TABLET PO SCH (09:29)
[2019-03-21] MEDS: TAMSULOSIN HCL 0.4 MG CAP.ER.24H PO SCH (09:30)
[2019-03-21] MEDS: METOPROLOL SUCC 25 MG TAB.ER PO SCH (09:30)
[2019-03-21] MEDS: BREO (FLUTICASONE/VILANTEROL) 200MCG/25MCG INHALER INH SCH (09:57)
--- NOTE | 2019-03-21 11:20 | Occupational Therapy Tx Note ---
Occupational Therapy Tx Note - Treatment Note Tolerated: Good Total Time Spent With Patient: 43 (2 TE) Occupational Therapy Treatment Note: Detail (S: Pt supine in bed upon therapist arrival and agreeable to OT Tx, spouse and present. ЮЛИЯ Mast reports Pt with low BP this morning and requesting orthostatic BP to be taken. O: Supine > EOB independently, sit to stand to FWW with CGA for balance and safety, Pt stands ~90 secs while vitals being taken, Pt reports he feels "woozy". Supine: BP 91/39, SpO2 94%, 80 HR. Sit: BP 87/38, SpO2 94%, 82 HR. Stand: 78/34, SpO2 94%, 96 HR. OT encouraging Pt to drink fluids throughout Tx to ensure hydration. OT initiates UB strengthening at EOB to ensure safety d/t low BP while encouraging increased and maintained strength and functional endurance. Yellow theraband 5 reps x2 shoulder horizontal ab/aduction; shoulder flexion, elbow flexion. Pt becomes quickly fatigued and requires frequent rest breaks. L shoulder limited to ~85 degrees flexion/abduction and L elbow limited to ~15 degees flexion prior to becoming elbow abduction d/t L UE deficit from Pt reported neck Sx.) Occupational Therapy Problem List: Detail (1. Decreased Ind with self cares. 2. Decreased activity tolerance needed for safe and Ind return home. 3. Decreased functional mobility needed for self care tasks.) Occupational Therapy Goals: 1. Pt will be Ind with total body dressing. 2. Pt will be Ind with showering in sitting. 3. Pt will be Ind with functional mobility needed for safe and Ind self cares. 4. Pt will demonstrate improved endurance to allow safe and Ind self cares and functional mobility. Prognosis: Good Occupational Therapy Plan: OT 2-4 times per week to address goals and problem list as above.
--- NOTE | 2019-03-21 14:58 | Physician Progress Note ---
Subjective - Date Date of Progress Note: 03/21/19 - Admitting Diagnosis Diagnosis: Muscular deconditioning and UTI - Subjective Nursing Care Plan Problem List Activity Intolerance (Swing Bed) Start: 03/11/19 14 :52 Freq: Status: Active Protocol: Created 03/11/19 14:52 SAF (Rec: 03/11/19 14:52 SAF [email or web address]-1) Altered Thought Process (Fall Risk) Start: 03/11/19 20:47 Freq: Status: Active Protocol: Created 03/11/19 20:47 LMS (Rec: 03/11/19 20:47 LMS [email or web address]-1) Impaired Mobility (Fall Risk) Start: 03/11/19 20:47 Freq: Status: Active Protocol: Created 03/11/19 20:47 LMS (Rec: 03/11/19 20:47 LMS [email or web address]-1) Knowledge Deficit (Swing Bed) Start: 03/11/19 14:52 Freq: Status: Active Protocol: Created 03/11/19 14:52 SAF (Rec: 03/11/19 14:52 SAF ASTS-1) Pain (Swing Bed) Start: 03/11/19 14:52 Freq: Status: Active Protocol: Created 03/11/19 14:52 SAF (Rec: 03/11/19 14:52 SAF [email or web address]-1) Risk for Injury (Fall Risk) Start: 03/11/19 20:47 Freq: Status: Active Protocol: Created 03/11/19 20:47 LMS (Rec: 03/11/19 20:47 LMS ASTS-1) Skin Integrity, Impaired (Swing Bed) Start: 03/12/19 10:56 Freq: Status: Active Protocol: Created 03/12/19 10:56 MMT (Rec: 03/12/19 10:56 MMT ASTS-1) - Subjective Detail Comment: No additional complaints except as noted below General - Cognitive Patterns Speech: Soft Thought Process: Intact Thought Content: Normal - Communication Select best description of speech pattern: Clear Speech Ability to express ideas and wants: Usually Understood Understanding verbal content: Usually Understands - Mood and Behavior Patterns Appearance: Disheveled Mood: Normal Attitude: Cooperative Motor Activity: Calm Affect: Appropriate Hallucinations: Denies - Physical Functioning Activity Level: Up with assist x1 Turning: Self ad fransisca ROM Ability: Limited/Compromised Assistive Devices: 2 Wheel Walker Ambulation Ability: Needs Assist Bed Mobility: Needs Assist Transfer Ability: Needs Assist Bathing Ability: Needs Assist Personal Hygiene: Independent Dressing Ability: Needs Assist Eating (Feeding) Ability: Independent Toileting Ability: Needs Assist Administer Own Medication: Needs Assist - Continence Bowel Pattern: Normal for Patient Bladder Pattern: Normal Urinary Incontinence: Functional Meds/Allergies - Allergies Allergies Allergy/AdvReac Type Severity Reaction Status Date / Time ciprofloxacin Allergy PT UNSURE Verified 03/08/19 16:51 OF REACTION - Active Medications Current Medications Acetaminophen (Tylenol 325mg) 650 mg PO Q6H PRN PRN Reason: PAIN - MILD(1-4)/FEVER Last Admin: 03/20/19 18:13 Dose: 650 mg Documented by: Ascorbic Acid (Vitamin C) 500 mg PO BID [facility] Last Admin: 03/21/19 09:29 Dose: 500 mg Documented by: Aspirin (Ecotrin (Ec)) 81 mg PO DAILY [facility] Last Admin: 03/21/19 09:29 Dose: 81 mg Documented by: Calcium Carbonate/Glycine (Tums) 500 mg PO 1230,1730 [facility] Last Admin: 03/20/19 18:11 Dose: 500 mg Documented by: Clopidogrel Bisulfate (Plavix) 75 mg PO DAILY [facility] Last Admin: 03/21/19 09:29 Dose: 75 mg Documented by: Ferrous Sulfate (Iron) 325 mg PO BID [facility] Last Admin: 03/21/19 09:29 Dose: 325 mg Documented by: Magnesium Hydroxide (Milk Of Magnesium) 30 ml PO DAILY PRN PRN Reason: CONSTIPATION Last Admin: 03/13/19 19:59 Dose: 30 ml Documented by: Metoprolol Succinate (Toprol Xl) 12.5 mg PO DAILY [facility] Last Admin: 03/21/19 09:30 Dose: Not Given Documented by: Naproxen (Naprosyn) 500 mg PO QHS [facility] Last Admin: 03/20/19 21:09 Dose: 500 mg Documented by: Pantoprazole Sodium (Protonix) 40 mg PO DAILYAC [facility] Last Admin: 03/21/19 06:09 Dose: 40 mg Documented by: Polyethylene Glycol (Miralax) 17 gm PO DAILY [facility] Last Admin: 03/21/19 09:29 Dose: 17 gm Documented by: Senna/Docusate Sodium (Senna Plus) 1 each PO BID [facility] Last Admin: 03/21/19 09:29 Dose: 1 each Documented by: Tamsulosin HCl (Flomax) 0.4 mg PO DAILY [facility] Last Admin: 03/21/19 09:30 Dose: Not Given Documented by: Tramadol HCl (Ultram) 50 mg PO Q4H PRN PRN Reason: PAIN - MOD TO SEVERE (5-10) Last Admin: 03/14/19 22:33 Dose: 50 mg Documented by: Objective - Vital Signs Vital Signs: Vital Signs - Last 24 Hrs Temp Pulse Pulse Resp BP BP Pulse Ox 03/21/19 10:35 95 H 17 148/69 95 03/21/19 09:54 84 18 94 L 03/21/19 08:46 97.5 F L 82 18 65/35 98 03/21/19 08:44 97.5 F L 82 19 72/33 98 03/21/19 07:17 98.4 F 73 17 109/51 95 03/20/19 19:58 98.2 F 87 18 117/65 94 L - General General Appearance: Alert, Oriented x3, Cooperative, No acute distress - Head Head exam: Atraumatic - Eye Eye exam: Normal appearance, PERRL - ENT ENT exam: Normal exam, Mucous membranes moist - Respiratory Respiratory exam: Normal lung sounds bilaterally - Cardiovascular Cardiovascular Exam: Regular rate, Normal rhythm Peripheral Pulses: 2+: Radial (R), Radial (L), Dorsalis Pedis (R), Dorsalis Pedis (L) - GI/Abdominal GI/Abdominal exam: Soft, Normal bowel sounds - Rectal Rectal exam: Deferred - exam: Deferred - Extremities Extremities exam: Pedal edema (bilateral, 1+ pitting, L>R) - Back Back exam: Reports: Normal inspection - Neurological Neurological exam: Abnormal gait (weakness, shuffling, Left foot drop), Alert, CN II-XII intact, Oriented X3 - Psychiatric Psychiatric exam: Normal affect, Normal mood - Skin Skin exam: Normal color H&P Results - Labs Result Diagrams: 03/15/19 06:10 03/21/19 15:28 Discharge Potential - Discharge Needs Community Services Used Prior to Admission: None Patient Discharge Plan Description: Return Home Community Services Needed at Discharge: Home Health Aide, Home Health Nurse, Occupational Therapy, Physical Therapy Discharge Needs Comment: unknown at this time Plan - Swing Bed Certification Initial Certification Due: 03/11/19 14 Day Re-Cert Due: 03/25/19 44 Day Re-Cert Due: 04/24/19 74 Day Re-Cert Due: 05/24/19 - Detailed Diagnosis and Plan (1) Muscular deconditioning Current Visit: No Status: Acute Base Code: R29.898 - OTH SYMPTOMS AND SIGNS INVOLVING THE MUSCULOSKELETAL SYSTEM Comment: 03/21/19 -Admitted to Swing Bed Program for further PT/OT -Patient making progress in endurance and ambulation within halls -Continued work with PT/OT (2) Pain of left lower extremity Current Visit: No Status: Acute Base Code: M79.605 - PAIN IN LEFT LEG Comment: 03/21/19 -Continued c/o LLE discomfort, mostly surrounding ankle, 1+ pitting edema -Is sitting up in chair more, with legs in dependent position -Left Foot Xray: No fx, questionable tiny plantar calcaneal spur, possible calcific tendinosis -Consult Podiatry (Dr. Santana), who saw pt on Thursday03/14/19, no further interventions recommended -LLE Dopplar Negative for DVT -Left Tib/Fib Xray: negative for fx -Scheduled Naproxen 500mg PO q. HS -Tylenol 650mg PRN -Ultram PRN -Compression stockings to BLE -Spoke with Dr. Zach Luz, direct support staff member who performed heart cath, who recommended that another LLE venous dopplar be done. Venous dopplar has been ordered. -X-ray of bilateral hips/pelvis ordered to r/o fracture as hx of fall prior to heart cath unclear: negative for acute process (3) UTI (urinary tract infection) Current Visit: No Status: Acute Qualifiers: Hematuria presence: without hematuria Base Code: N39.0 - URINARY TRACT INFECTION, SITE NOT SPECIFIED Comment: 03/21/19 -U/A: Large Blood, +Nitrites, + Leukocytes upon admission -C&S: Pseudomonas susceptible to Cefepime -Continue IV Cefepime IV x 10 days -Consult with Dr. Copeland on 03/15/19 -Repeat UA negative after Cefepime completed, PICC line pulled (4) Urine retention Current Visit: No Status: Acute Base Code: R33.9 - RETENTION OF URINE, UNSPECIFIED Comment: 03/21/19 -Villatoro placed in ED d/t BSV over 800 -Villatoro removed on 03/10/19 with bladder scan monitoring -Unable to urinate after 8 hours, BSV 504 and villatoro replaced -Appointment with Dr. Copeland at 2pm on Thursday03/15/19, recommended repeat trial of bladder scans. Patient failed with PVR of 800ml, villatoro replaced 03/15 -Flomax 0.4mg PO daily started, per Dr. Copeland's recommendation -Follow-up appointment scheduled with Dr. Copeland outpatient 04/12 (5) Orthostatic hypotension Current Visit: Yes Status: Acute Base Code: I95.1 - ORTHOSTATIC HYPOTENSION Comment: 03/21/19 -C/o feeling dizzy when changing position -Orthostatics: sitting 105/49 to standing 74/57 (this was prior to medication administration) -Stop Requip -Started on Metoprolol 25mg daily at discharge from [facility], decreased to 12.5mg daily, patient continued to have symptoms. Stopped Metoprolol due to continued symptoms, direct support staff member Dr. Luz, made aware, no further medications recommended at this time. -BMP within normal limits -Fe 325mg PO BID + Vitamin C 500mg PO BID -Orthostatic BP daily -Encourage PO fluids (6) Left-sided weakness Current Visit: Yes Status: Acute Base Code: R53.1 - WEAKNESS Comment: 03/21/19: -Patient reports left-sided leg weakness and arm weakness noted since admission -No new falls -Recent Head CT at [facility] 02/27/19: negative for acute process -Left-sided foot drop noted on ambulation -Repeat head CT 03/15/19: negative for acute process -Continue working with PT/OT -Deconditioning vs lumbar spine involvement (7) DVT prophylaxis Current Visit: No Status: Acute Base Code: Z29.9 - ENCOUNTER FOR PROPHYLACTIC MEASURES, UNSPECIFIED Comment: 03/16/19 -High Risk -Continue with Plavix and ASA (8) Full code status Current Visit: No Status: Acute Base Code: Z78.9 - OTHER SPECIFIED HEALTH STATUS Comment: 03/21/19 -Full Code this admission
[2019-03-21 15:48] LABS: BLOOD UREA NITROGEN 27 mg/dL (8-23); EST GLOMERULAR FILTRATION RATE > 60 mL/min
[2019-03-21] MEDS: CALCIUM CARBONATE 500 MG TAB.CHEW PO SCH ×2 (15:48→17:42)
[2019-03-21 15:51] LABS: GLUCOSE,RANDOM 122 mg/dL (74-109)
--- NOTE | 2019-03-21 15:59 | Physical Therapy Tx Note ---
Physical Therapy Tx Note - Treatment Note Tolerated: Good Total Time Spent With Patient: 30 Physical Therapy Tx Note: Detail (The patient has no complaints of lightheadedness. The patient ambulated with front wheeled walker 104 feet x 1 with supervision for safety. The patient ambulated on 3 steps with folded walker and one railing with CG of 2 for safety. The patient then ambulated on carpet 70 feet x 1 with supervision for safety. The patient was returned to room via wheelchair. The patient was able to complete sit to and from stand independently but required more then one attempt at times. The patient had more difficulty ambulating on stairs without use of 2 railings. Will continue to practice ambulation on stairs.) Physical Therapy Problem List: Detail (1) Decreased LE strength 2)Assistance with bed mobility and transfers 3) Nonambulatory 4) Decreased standing balance due to LE weakness 5) Decreased ability to complete prolonged physical activity) Physical Therapy Goals: 1) The patient will be independent with bed mobility. 2) The patient will require CG/supervision of 1 with transfers. 3) The patient will ambulated with supervision/CG with appropriate device household distances (Goal Met). 4) Increase LE strength 1/3 muscle grade to improve ability to transfer and ambulate. 5) The patient will tolerate 30 min of physical activity with one to two rest periods. (Goal Met). 6) The patient will ambulate on stairs with use of one railing and cane/folded walker with CG of 1. Physical Therapy Plan: PT 1-2 times a day M-F for gait training, transfer training, bed mobility, LE strengthening exercises and balance exercises.
[2019-03-21] MEDS: NAPROXEN 250 MG TABLET PO SCH (21:21)
[2019-03-22] MEDS: PANTOPRAZOLE SODIUM 40 MG TABLET PO SCH (06:25)
[2019-03-22] MEDS: CLOPIDOGREL 75MG TABLET PO SCH (09:22)
[2019-03-22] MEDS: POLYETHYLENE GLY 17 GM PACKET PO SCH (09:22)
[2019-03-22] MEDS: ASPIRIN 81 MG TABEC PO SCH (09:22)
[2019-03-22] MEDS: SENNOSIDES/DOCUSATE SODIUM UD CAPSULE PO SCH ×2 (09:22→21:50)
[2019-03-22] MEDS: ASCORBIC ACID 500 MG TAB PO SCH ×2 (09:22→21:49)
[2019-03-22] MEDS: FERROUS SULFATE 325 MG TAB PO SCH ×2 (09:22→21:49)
[2019-03-22] MEDS: BREO (FLUTICASONE/VILANTEROL) 200MCG/25MCG INHALER INH SCH (09:49)
[2019-03-22 11:18] LABS: HEMOGLOBIN 11.5 gm/dl (14.0-18.0); MEAN CELL VOLUME 87.6 fl (81-97); MEAN CORPUSCULAR HGB CONC 31.9 g/dl (32-36); MEAN PLATELET VOLUME 11.5 fl (7.4-10.4); PLATELET COUNT 253 K/uL (130-400); RED BLOOD COUNT 4.11 M/uL (4.40-5.70); RED CELL DISTRIBUTION WIDTH 13.6 % (11.5-14.5); WHITE BLOOD COUNT W/O DIFF 7.3 K/uL (4.2-12.2)
[2019-03-22 11:19] LABS: MEAN CORPUSCULAR HEMOGLOBIN 27.9 pg (27-33)
[2019-03-22 11:33] LABS: ABSOLUTE NEUTROPHIL COUNT 5.36
--- NOTE | 2019-03-22 12:53 | Occupational Therapy Tx Note ---
Occupational Therapy Tx Note - Treatment Note Tolerated: Good Total Time Spent With Patient: 47 (2 SC, 1 TA) Occupational Therapy Treatment Note: Detail (S: Ok to see per RN Pro, low BP this a.m. but currently 113/44. Pt reclined in chair upon arrival, spouse and daughter present. Pt immediately states, "I don't want to work on my arms, I want to work on my L foot and walk." OT educated Pt on role of OT vs. PT, reasoning for yesterday's UE session - benefits of UE strength and functional endurance grossly as well as safety prec. for low BP, and given choice in today's Tx - however Pt reports he only wants to work on his "broken L foot." O: OT assesses BP while also working on standing balance/endurance in prep for Pt's request to walk. Seated: BP 141/61, HR 81. Pt attempts sit to stand 4 trials prior to requiring MIN-MOD assist for sit to stand to FWW. Standing: BP 126/93 HR 98 initially, BP 90/42 HR 97 after 3 min stand. Pt becomes upset with standing this duration as he "will be too tired for walking." Pt demos independence with don/doffing socks/ shoes at bedside chair with MIN verbal instruction for sequencing and attention to task. Pt suddenly reports he is having a BM while standing to take BP and ambulates to toilet while BP cuff and O2 sensor on and without catheter bag attached to walker. At toilet, OT assists Pt with don/doffing briefs and pants d/t BM in briefs and need to thread catheter. MOD assist for sit-stand from toilet and assist to wipe while Pt heavy support on GB and walker, requires one seated rest during wiping d/t total body and leg fatigue, MIN assist to pull pants and briefs to waist level in standing. CGA for functional mobility to/from toilet with FWW, Pt demos modified gait d/t L foot drop. Of note, Pt reports L foot drop only since heart cath 03/02/19. Therapist assesses UE strength, L shld and elbow weaker than R - Pt reports L was always stronger. Unsure on baseline level as Pt appears to have cogntive deficits as well. A: Pt demos decreased total body strength, limiting independence with LB dressing (standing pant mgmt) as well as functional TFs and mobility. Cog deficits limit Pt's understanding and cooperation re: need for total body strengthening to increase independence with his goal of walking and therapist goals of ADL independence. Rec. [place] vs. home with increased assistance pending progress.) Occupational Therapy Problem List: Detail (1. Decreased Ind with self cares. 2. Decreased activity tolerance needed for safe and Ind return home. 3. Decreased functional mobility needed for self care tasks.) Occupational Therapy Goals: 1. Pt will be Ind with total body dressing. 2. Pt will be Ind with showering in sitting. 3. Pt will be Ind with functional mobility needed for safe and Ind self cares. 4. Pt will demonstrate improved endurance to allow safe and Ind self cares and functional mobility. Prognosis: Moderate Occupational Therapy Plan: OT 2-4 times per week to address goals and problem list as above.
[2019-03-22] MEDS: TAMSULOSIN HCL 0.4 MG CAP.ER.24H PO SCH (13:44)
[2019-03-22] MEDS: CALCIUM CARBONATE 500 MG TAB.CHEW PO SCH ×2 (14:50→16:55)
--- NOTE | 2019-03-22 15:54 | Physical Therapy Tx Note ---
Physical Therapy Tx Note - Treatment Note Tolerated: Good Total Time Spent With Patient: 25 Physical Therapy Tx Note: Detail (PT treatment was limited secondary to bowel issues. The patient ambulated x 2 on 3 steps with supervision/CG for safety and verbal cues for proper technique, 1 time with 2 railings, 1 time with one railing and standard cane. The patient's daughter observed the patient treatment. The patient was taken to rehab department and completed 5 min on Nu step without resistance. The patient was returned to room due to bowel issues. The patient continues to progress well.) Physical Therapy Problem List: Detail (1) Decreased LE strength 2)Assistance with bed mobility and transfers 3) Nonambulatory 4) Decreased standing balance due to LE weakness 5) Decreased ability to complete prolonged physical activity) Physical Therapy Goals: 1) The patient will be independent with bed mobility. 2) The patient will require CG/supervision of 1 with transfers. 3) The patient will ambulated with supervision/CG with appropriate device household distances (Goal Met). 4) Increase LE strength 1/3 muscle grade to improve ability to transfer and ambulate. 5) The patient will tolerate 30 min of physical activity with one to two rest periods. (Goal Met). 6) The patient will ambulate on stairs with use of one railing and cane/folded walker with CG of 1. Physical Therapy Plan: PT 1-2 times a day M-F for gait training, transfer training, bed mobility, LE strengthening exercises and balance exercises.
[2019-03-22] MEDS: NAPROXEN 250 MG TABLET PO SCH (21:49)
[2019-03-22] MEDS: TRAMADOL HCL 50 MG TABLET PO PRN (21:51)
[2019-03-23] MEDS: PANTOPRAZOLE SODIUM 40 MG TABLET PO SCH (06:24)
[2019-03-23] MEDS: CLOPIDOGREL 75MG TABLET PO SCH (09:07)
[2019-03-23] MEDS: ASPIRIN 81 MG TABEC PO SCH (09:07)
[2019-03-23] MEDS: ASCORBIC ACID 500 MG TAB PO SCH ×2 (09:07→21:25)
[2019-03-23] MEDS: FERROUS SULFATE 325 MG TAB PO SCH ×2 (09:07→21:25)
[2019-03-23] MEDS: POLYETHYLENE GLY 17 GM PACKET PO SCH (09:08)
[2019-03-23] MEDS: SENNOSIDES/DOCUSATE SODIUM UD CAPSULE PO SCH ×2 (09:08→21:25)
[2019-03-23] MEDS: BREO (FLUTICASONE/VILANTEROL) 200MCG/25MCG INHALER INH SCH (12:07)
--- NOTE | 2019-03-23 12:45 | Physical Therapy Tx Note ---
Physical Therapy Tx Note - Treatment Note Tolerated: Good Total Time Spent With Patient: 35 Physical Therapy Tx Note: Detail (The patient was in bathroom when PT arrived. The patient was taken to rehab depart. and completed the following LE strengthening exercises: in parallel bars squats, hip abduction, toe raises hip extension all x 10 reps. The patient also completed seated ankle pumps using balance board. The patient completed in the parallel bars: standing balance with varying bases of support and perturbations. The patient ambulated with front wheeled walker 200 feet x 1 with supervision for safety and one incident of L toe stubbing and LOB (which patient was able to right himself). Patient exhibits improved LE strength.) Physical Therapy Problem List: Detail (1) Decreased LE strength 2)Assistance with bed mobility and transfers 3) Nonambulatory 4) Decreased standing balance due to LE weakness 5) Decreased ability to complete prolonged physical activity) Physical Therapy Goals: 1) The patient will be independent with bed mobility. 2) The patient will require CG/supervision of 1 with transfers. 3) The patient will ambulated with supervision/CG with appropriate device household distances (Goal Met). 4) Increase LE strength 1/3 muscle grade to improve ability to transfer and ambulate. 5) The patient will tolerate 30 min of physical activity with one to two rest periods. (Goal Met). 6) The patient will ambulate on stairs with use of one railing and cane/folded walker with CG of 1. Physical Therapy Plan: PT 1-2 times a day M-F for gait training, transfer training, bed mobility, LE strengthening exercises and balance exercises.
[2019-03-23] MEDS ORDERED: FLUDROCORTISONE ACETATE 0.1 MG TABLET PO ONE ×2 (13:21)
[2019-03-23] MEDS: CALCIUM CARBONATE 500 MG TAB.CHEW PO SCH ×2 (13:46→18:20)
--- NOTE | 2019-03-23 16:12 | Physical Therapy Tx Note ---
Physical Therapy Tx Note - Treatment Note Tolerated: Good Total Time Spent With Patient: 30 Physical Therapy Tx Note: Detail (The patient was up in chair when PT arrived and taken to Rehab department. The patient rode the Nu Step x 10 minutes followed by LE exercises seated including: hip adductor squeezes, hip abduction with green T-band and hamstring curls, hip marching, ankle pumps all x 15 reps. The patient ambulated 120 feet x 1 with supervision for safety. The patient was returned to room and left in recliner with call light in place.) Physical Therapy Problem List: Detail (1) Decreased LE strength 2)Assistance with bed mobility and transfers 3) Nonambulatory 4) Decreased standing balance due to LE weakness 5) Decreased ability to complete prolonged physical activity) Physical Therapy Goals: 1) The patient will be independent with bed mobility. 2) The patient will require CG/supervision of 1 with transfers. 3) The patient will ambulated with supervision/CG with appropriate device household distances (Goal Met). 4) Increase LE strength 1/3 muscle grade to improve ability to transfer and ambulate. 5) The patient will tolerate 30 min of physical activity with one to two rest periods. (Goal Met). 6) The patient will ambulate on stairs with use of one railing and cane/folded walker with CG of 1. Physical Therapy Plan: PT 1-2 times a day M-F for gait training, transfer training, bed mobility, LE strengthening exercises and balance exercises.
[2019-03-23] MEDS: NAPROXEN 250 MG TABLET PO SCH (21:25)
[2019-03-24] MEDS: PANTOPRAZOLE SODIUM 40 MG TABLET PO SCH (06:17)
[2019-03-24 06:31] LABS: BLOOD UREA NITROGEN 16 mg/dL (8-23); CREATININE 0.8 mg/dL (0.7-1.2); EST GLOMERULAR FILTRATION RATE > 60 mL/min; GLUCOSE,RANDOM 94 mg/dL (74-109)
[2019-03-24] MEDS: BREO (FLUTICASONE/VILANTEROL) 200MCG/25MCG INHALER INH SCH (10:09)
[2019-03-24] MEDS: ASPIRIN 81 MG TABEC PO SCH (10:35)
[2019-03-24] MEDS: FERROUS SULFATE 325 MG TAB PO SCH ×2 (10:36→21:54)
[2019-03-24] MEDS: FLUDROCORTISONE ACETATE 0.1 MG TABLET PO SCH (10:36)
[2019-03-24] MEDS: ASCORBIC ACID 500 MG TAB PO SCH ×2 (10:37→21:55)
[2019-03-24] MEDS: CLOPIDOGREL 75MG TABLET PO SCH (10:37)
[2019-03-24] MEDS: POLYETHYLENE GLY 17 GM PACKET PO SCH (10:38)
[2019-03-24] MEDS: SENNOSIDES/DOCUSATE SODIUM UD CAPSULE PO SCH ×2 (10:38→21:55)
[2019-03-24] MEDS: CALCIUM CARBONATE 500 MG TAB.CHEW PO SCH ×2 (13:24→18:27)
[2019-03-24] MEDS: NAPROXEN 250 MG TABLET PO SCH (21:54)
[2019-03-25] MEDS: PANTOPRAZOLE SODIUM 40 MG TABLET PO SCH (06:21)
[2019-03-25 07:12] LABS: BLOOD UREA NITROGEN 17 mg/dL (8-23); CREATININE 0.9 mg/dL (0.7-1.2); EST GLOMERULAR FILTRATION RATE > 60 mL/min; GLUCOSE,RANDOM 96 mg/dL (74-109)
[2019-03-25] MEDS: FLUDROCORTISONE ACETATE 0.1 MG TABLET PO SCH (10:27)
[2019-03-25] MEDS: ASPIRIN 81 MG TABEC PO SCH (10:49)
[2019-03-25] MEDS: FERROUS SULFATE 325 MG TAB PO SCH (10:49)
[2019-03-25] MEDS: SENNOSIDES/DOCUSATE SODIUM UD CAPSULE PO SCH (10:49)
[2019-03-25] MEDS: ASCORBIC ACID 500 MG TAB PO SCH (10:49)
[2019-03-25] MEDS: CLOPIDOGREL 75MG TABLET PO SCH (10:49)
[2019-03-25] MEDS: POLYETHYLENE GLY 17 GM PACKET PO SCH (10:50)
[2019-03-25] MEDS: BREO (FLUTICASONE/VILANTEROL) 200MCG/25MCG INHALER INH SCH (10:55)
--- NOTE | 2019-03-25 11:13 | Discharge Note ---
VTE H&P Assessment - Risk for VTE Risk for VTE: Yes Risk Level: Moderate Risk Assessment Date: 03/16/19 Risk Assessment Time: 17:00 VTE Orders Placed or Will Be Placed: No VTE Reason for No Prophylaxis: Contraindicated (high risk for bleeding and on plavic and aspirin) Discharge Medications - Discharge Medications Prescriptions: Naproxen [Naprosyn] 500 mg PO QHS #30 tablet Fludrocortisone Acetate [Florinef] 0.1 mg PO DAILY #30 tabcr Ferrous Sulfate [Iron] 325 mg PO DAILY #30 tablet Sennosides/Docusate Sodium [Senna Plus] 1 each PO BID #30 capsule Ascorbic Acid [Vitamin C] 500 mg PO BID #60 tab Home Medications: Ambulatory Orders Albuterol Sulfate [Ventolin Hfa] 1 puff IH Q6H PRN 03/08/19 [Last Taken Unknown] Aspirin [Aspir-Low] 81 mg PO DAILY 03/08/19 [Last Taken Unknown] Atorvastatin Calcium 20 mg PO DAILY 03/08/19 [Last Taken Unknown] Clopidogrel Bisulfate [Clopidogrel] 75 mg PO DAILY 03/08/19 [Last Taken Unknown] Fluticasone/Salmeterol [Advair 250-50 Diskus] 1 puff IH DAILY 03/08/19 [Last Taken Unknown] Nitroglycerin 0.4 mg PO ASDIR PRN 03/08/19 [Last Taken Unknown] Pantoprazole Sodium [Protonix] 40 mg PO DAILY 03/08/19 [Last Taken Unknown] Acetaminophen [Tylenol 325Mg] 650 mg PO Q6H PRN tablet 03/25/19 [Last Taken Unknown] Ascorbic Acid [Vitamin C] 500 mg PO BID #60 tab 03/25/19 [Last Taken Unknown] Aspirin Enteric-Coated [Ecotrin (EC)] 81 mg PO DAILY tabec 03/25/19 [Last Taken Unknown] Ferrous Sulfate [Iron] 325 mg PO DAILY #30 tablet 03/25/19 [Last Taken Unknown] Fludrocortisone Acetate [Florinef] 0.1 mg PO DAILY #30 tabcr 03/25/19 [Last Taken Unknown] Naproxen [Naprosyn] 500 mg PO QHS #30 tablet 03/25/19 [Last Taken Unknown] Sennosides/Docusate Sodium [Senna Plus] 1 each PO BID #30 capsule 03/25/19 [Last Taken Unknown] Discharge Note - Date Date of Discharge Note: 03/25/19 Disposition: Home, Self-Care Condition: (1) Good Additional Instructions: Appointments have been scheduled for you as follows: -March 29 at 2:20 (Edgar) and 3:00 PM (Nuzhat): Marty Marcano FLIGHT LINE SERVICE ATTENDANT at [facility] for both you and your spouse on Please arrive 10-15 minutes early and bring completed new patient paperwork. Enter through Door C located off of [facility] (same entrance as [facility]). -April 12 at 3:30PM with Dr. Copeland for follow up of urinary retention and catheter use. Enter through Main [facility] entrance and check in at the front. Phone # is [phone] -March 30 at 1:00PM with Syl at [facility] for fitting of an AFO brace for your foot drop on L foot. Please wear your normal shoes to appointment (no sandals). Office is located at [address] [place], [place] [address] [address] (behind [address]). Phone# is [phone] -[facility] will see you at home for nursing and therapy. They can be reached at [phone]. -A hospital bed has been ordered for you through [facility] ([phone]) and they will contact you for delivery. Prescriptions: Naproxen [Naprosyn] 500 mg PO QHS #30 tablet Fludrocortisone Acetate [Florinef] 0.1 mg PO DAILY #30 tabcr Ferrous Sulfate [Iron] 325 mg PO DAILY #30 tablet Sennosides/Docusate Sodium [Senna Plus] 1 each PO BID #30 capsule Ascorbic Acid [Vitamin C] 500 mg PO BID #60 tab Activity at Discharge: Increase Activity as Tolerated Diet at Discharge: Regular Diet
--- NOTE | 2019-03-25 11:21 | Discharge Summary ---
Providers Discharge Summary Date: 03/25/19 Date of admission: 03/11/19 12:47 Expected Date of Discharge: 03/25/19 Attending physician: MEREDITH ENNIS Primary care physician: Marty Marcano N.P. Consults: Consult Orders 03/22/19 13:14 Consult NOW Consulting Provider: GANGA LEY Physician Instructions: Reason For Exam: orthostatic hypotension,low serum osmolality Physical Exam - Vital Signs Vital Signs: Vital Signs - Last 24 Hrs Temp Pulse Pulse Resp BP Pulse Ox 03/25/19 10:54 84 18 95 03/25/19 08:46 139/62 03/25/19 07:25 98.1 F 82 16 171/83 97 03/24/19 20:00 98.1 F 89 16 100/43 95 - General General Appearance: Alert, Oriented x3, Cooperative, No acute distress - Head Head exam: Atraumatic - Eye Eye exam: Normal appearance, PERRL - ENT ENT exam: Normal exam, Mucous membranes moist - Respiratory Respiratory exam: Normal lung sounds bilaterally - Cardiovascular Cardiovascular Exam: Regular rate, Normal rhythm Peripheral Pulses: 2+: Radial (R), Radial (L), Dorsalis Pedis (R), Dorsalis Pedis (L) - GI/Abdominal GI/Abdominal exam: Soft, Normal bowel sounds - Rectal Rectal exam: Deferred - exam: Deferred - Extremities Extremities exam: Pedal edema (bilateral, 1+ pitting, L>R) - Back Back exam: Reports: Normal inspection - Neurological Neurological exam: Abnormal gait (weakness, shuffling, Left foot drop), Alert, CN II-XII intact, Oriented X3 - Psychiatric Psychiatric exam: Normal affect, Normal mood - Skin Skin exam: Normal color Hospitalization - Hospitalization Admission Diagnosis: Muscular deconditioning and UTI - Hospitalization Course Disposition: Home, Self-Care Reason For Discharge/Transfer: Medical Stability Procedures: Imaging and X-Rays 03/13/19 06:09 CHEST 1 VIEW [RAD] Stat 03/14/19 12:21 VENOUS DOPPLER LOWER EXT LT [US] Stat 03/14/19 13:38 HIP,BILATERAL W/PELVIS 2 VIEWS [RAD] Stat 03/15/19 17:29 HEAD WO CONTRAST [CT] Stat Abnormal Labs: Abnormal Lab Results 03/13/19 03/13/19 03/13/19 Range/Units 05:58 05:58 06:00 RBC 3.29 L (4.40-5.70) M/uL Hgb 9.4 L (14.0-18.0) gm/dl Hct 28.4 L (42.0-52.0) % MCHC (32-36) g/dl MPV 10.9 H (7.4-10.4) fl Monocytes 10.0 H (0-9) % Sodium (136-145) mmol/L Potassium (3.4-4.5) mmol/L Chloride (98-107) mmol/L BUN 28 H (8-23) mg/dL Random Glucose (74-109) mg/dL Calcium 8.3 L (8.8-10.2) mg/dL Iron 28 L (59-158) ug/dL % Saturation 16 L (20-50) % ALT 53 H (<41) U/L Total Protein 5.7 L (6.6-8.7) g/dL Albumin 2.7 L (4.0-5.0) g/dL Albumin/Globulin Ratio 0.9 L (1.1-1.8) Urine Osmolality (250-1200) mOsm/kg 03/15/19 03/15/19 03/21/19 Range/Units 06:10 06:10 15:28 RBC 3.46 L (4.40-5.70) M/uL Hgb 9.6 L (14.0-18.0) gm/dl Hct 30.2 L (42.0-52.0) % MCHC 31.8 L (32-36) g/dl MPV 11.5 H (7.4-10.4) fl Monocytes 10.0 H (0-9) % Sodium 134 L (136-145) mmol/L Potassium (3.4-4.5) mmol/L Chloride 96 L (98-107) mmol/L BUN 26 H 27 H (8-23) mg/dL Random Glucose 122 H (74-109) mg/dL Calcium 8.6 L 8.7 L (8.8-10.2) mg/dL Iron (59-158) ug/dL % Saturation (20-50) % ALT 43 H (<41) U/L Total Protein 5.7 L (6.6-8.7) g/dL Albumin 2.9 L (4.0-5.0) g/dL Albumin/Globulin Ratio 1.0 L (1.1-1.8) Urine Osmolality (250-1200) mOsm/kg 03/21/19 03/22/19 03/24/19 Range/Units 17:57 11:12 06:00 RBC 4.11 L (4.40-5.70) M/uL Hgb 11.5 L (14.0-18.0) gm/dl Hct 36.0 L (42.0-52.0) % MCHC 31.9 L (32-36) g/dl MPV 11.5 H (7.4-10.4) fl Monocytes (0-9) % Sodium (136-145) mmol/L Potassium 4.6 H (3.4-4.5) mmol/L Chloride (98-107) mmol/L BUN (8-23) mg/dL Random Glucose (74-109) mg/dL Calcium (8.8-10.2) mg/dL Iron (59-158) ug/dL % Saturation (20-50) % ALT (<41) U/L Total Protein (6.6-8.7) g/dL Albumin (4.0-5.0) g/dL Albumin/Globulin Ratio (1.1-1.8) Urine Osmolality 96 L (250-1200) mOsm/kg Condition at Discharge: (1) Good Discharge Diagnosis: deconditioning. orthostatic hypotension improved with Florinef and adrenal ACTH stim test is pending send out labs. urinary retention and has a villatoro and Dr Graham is following. 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 Discharge Medications - Discharge Medications Prescriptions: Naproxen [Naprosyn] 500 mg PO QHS #30 tablet Fludrocortisone Acetate [Florinef] 0.1 mg PO DAILY #30 tabcr Ferrous Sulfate [Iron] 325 mg PO DAILY #30 tablet Sennosides/Docusate Sodium [Senna Plus] 1 each PO BID #30 capsule Ascorbic Acid [Vitamin C] 500 mg PO BID #60 tab Home Medications: Ambulatory Orders Albuterol Sulfate [Ventolin Hfa] 1 puff IH Q6H PRN 03/08/19 [Last Taken Unknown] Aspirin [Aspir-Low] 81 mg PO DAILY 03/08/19 [Last Taken Unknown] Atorvastatin Calcium 20 mg PO DAILY 03/08/19 [Last Taken Unknown] Clopidogrel Bisulfate [Clopidogrel] 75 mg PO DAILY 03/08/19 [Last Taken Unknown] Fluticasone/Salmeterol [Advair 250-50 Diskus] 1 puff IH DAILY 03/08/19 [Last Taken Unknown] Nitroglycerin 0.4 mg PO ASDIR PRN 03/08/19 [Last Taken Unknown] Pantoprazole Sodium [Protonix] 40 mg PO DAILY 03/08/19 [Last Taken Unknown] Acetaminophen [Tylenol 325Mg] 650 mg PO Q6H PRN tablet 03/25/19 [Last Taken Unknown] Ascorbic Acid [Vitamin C] 500 mg PO BID #60 tab 03/25/19 [Last Taken Unknown] Aspirin Enteric-Coated [Ecotrin (EC)] 81 mg PO DAILY tabec 03/25/19 [Last Taken Unknown] Ferrous Sulfate [Iron] 325 mg PO DAILY #30 tablet 03/25/19 [Last Taken Unknown] Fludrocortisone Acetate [Florinef] 0.1 mg PO DAILY #30 tabcr 03/25/19 [Last Taken Unknown] Naproxen [Naprosyn] 500 mg PO QHS #30 tablet 03/25/19 [Last Taken Unknown] Sennosides/Docusate Sodium [Senna Plus] 1 each PO BID #30 capsule 03/25/19 [Last Taken Unknown] Discharge Plan - Discharge Instructions Additional Instructions: Appointments have been scheduled for you as follows: -March 29 at 2:20 (Edgar) and 3:00 PM (Nuzhat): Marty Marcano NP at [facility] for both you and your spouse on Please arrive 10-15 minutes early and bring completed new patient paperwork. Enter through Door C located off of [facility] -April 12 at 3:30PM with Dr. Copeland for follow up of urinary retention and catheter use. Enter through Main [facility] entrance and check in at the front. Phone # is [phone] -March 30 at 1:00PM with Syl at [facility] for fitting of an AFO brace for your foot drop on L foot. Please wear your normal shoes to appointment (no sandals). [facility] [place], [place] [address] (behind [address]). Phone# is [phone] -[facility] will see you at home for nursing and therapy. They can be reached at [phone]. -A hospital bed has been ordered for you through [facility] ([phone]) and they will contact you for delivery. Quality Measures - Quality Measures Quality Measures: Advance Directives, Documentation of Current Medications in Medical Record, Elder Maltreatment Screen and Follow-Up Plan, Screening for High Blood Pressure and F/U Documented - Current Medications Quality Measure: Measure #130: Documentation of Current Medications Documentation of Current Medications: <Current Medications Documented/Reviewed> [G8427] - Blood Pressure Screening Quality Measure: Screening for High Blood Pressure and Follow-Up Documented Does Patient Have Any of the Following: Active Dx of HTN Blood Pressure Classification: Pre-Hypertensive BP Reading Systolic Measurement: 130 Diastolic Measurement: 55 Screening for High Blood Pressure: Patient Exclusion, Hx of HTN [G9744] - Advance Directives Quality Measure: Measure #47: Care Plan Advance Directives Established: No Advance Directives Information Provided To Patient: No Advance Directives on File: No Living Will: Yes Power of Chief Supply Chain Officer: Yes Power of Chief Supply Chain Officer Name: JASMINA Advance Care Planning: <Care Plan/Decision Maker Documented; Discussed & Documented> [3179C] - Elder Abuse Suspicion Index Screening: Elder Abuse Suspicion Index Screening Rely on people for bathing, dressing, shopping, banking, etc: No Prevented from getting food, clothes, medication, etc: No Made to feel shamed or threatened by someone: No Forced to sign papers or use money against will: No Feel afraid, touched in ways not wanted or hurt physically: No Poor eye contact, withdrawn, malnourished, cuts or bruises: No Screening Result: Negative result EASI Reference Information: Mitchell HEADLEY, Mariaelena C, Charito D, Pee Granda.Development and validation of a tool to assist physicians identification of elder abuse: The Elder Abuse Suspicion Index (EASI ). Journal of Elder Abuse and Neglect, 2008; 20 (3): 276-300. - Elder Maltreatment Screen Quality Measures: Elder Maltreatment Screen and Follow-Up Plan Elder Maltreatment Screen: <Negative, No Follow-Up Plan Required> [G6463]
[2019-03-25] MEDS ORDERED: COSYNTROPIN IV ONE (12:30)
[2019-03-25 13:07] LABS: ABSOLUTE NEUTROPHIL COUNT 5.04; BASO % 0.5 % (0-6); EOS % 3.9 % (0-6); GRAN % 65.7 % (47-80); HEMATOCRIT 35.2 % (42.0-52.0); LYMPH % 23.4 % (16-45); MEAN CELL VOLUME 88.4 fl (81-97); MEAN CORPUSCULAR HEMOGLOBIN 27.6 pg (27-33); MEAN CORPUSCULAR HGB CONC 31.3 g/dl (32-36); MEAN PLATELET VOLUME 11.7 fl (7.4-10.4); MONO % 6.5 % (0-9); PLATELET COUNT 243 K/uL (130-400); RED BLOOD COUNT 3.98 M/uL (4.40-5.70); RED CELL DISTRIBUTION WIDTH 13.6 % (11.5-14.5); WHITE BLOOD COUNT W/O DIFF 7.7 K/uL (4.2-12.2)
--- NOTE | 2019-03-25 14:03 | Physical Therapy Tx Note ---
Physical Therapy Tx Note - Treatment Note Tolerated: Good Total Time Spent With Patient: 40 Physical Therapy Tx Note: Detail (Pt up in recliner upon arrival, having IV placed for test later today. Sit to stand transfer w/SBA to front wheeled walker. Ambulated from room into hallway to surgical waiting room (about 130 feet) w/CGA/SBA. Sat in wheelchair for brief rest, then patient was transported to rehab gym. Transferred from wheelchair to NuStep w/SBA, positioned in NuStep w/CGA. Rode NuStep for 10 minutes on level 2 w/o difficulty. Ambulated from NuStep to parallel bars for standing exercises: 10 each B of hip flexion, abduction, extension, knee flexion. Pt requested rest break. Upon going to sit in wheelchair behind him, he felt that he had soiled his pants. Transported back to room, notified nrsg. Left up in chair w/nrsg res habilitation assistant; present in room.) Physical Therapy Problem List: Detail (1) Decreased LE strength 2)Assistance with bed mobility and transfers 3) Nonambulatory 4) Decreased standing balance due to LE weakness 5) Decreased ability to complete prolonged physical activity) Physical Therapy Goals: 1) The patient will be independent with bed mobility. 2) The patient will require CG/supervision of 1 with transfers. 3) The patient will ambulated with supervision/CG with appropriate device household distances (Goal Met). 4) Increase LE strength 1/3 muscle grade to improve ability to transfer and ambulate. 5) The patient will tolerate 30 min of physical activity with one to two rest periods. (Goal Met). 6) The patient will ambulate on stairs with use of one railing and cane/folded walker with CG of 1. Prognosis: Good Physical Therapy Plan: PT 1-2 times a day M-F for gait training, transfer training, bed mobility, LE strengthening exercises and balance exercises.
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
== END 2019-03-25 17:06 | disposition home or self-care (01) | DRG 556 ==
LOC: MEDSURG 12:47
PROVIDERS: ADMIT Internal Medicine; ATTEND Internal Medicine
DX: R29.898 Other symptoms and signs involving the musculoskeletal system (principal); N39.0 Urinary tract infection, site not specified; R33.9 Retention of urine, unspecified; M79.605 Pain in left leg; I95.1 Orthostatic hypotension; J43.9 Emphysema, unspecified; J44.9 Chronic obstructive pulmonary disease, unspecified; I10 Essential (primary) hypertension; E78.00 Pure hypercholesterolemia, unspecified; I50.9 Heart failure, unspecified; M19.90 Unspecified osteoarthritis, unspecified site; Z87.891 Personal history of nicotine dependence; Z95.5 Presence of coronary angioplasty implant and graft
CPT/HCPCS: 70450; 71045; 73521; 80048; 80053; 81003; 82024; 82533; 82728; 83540; 83550; 83935; 84443; 85025; 85027; 90670; 94640; 97110; 97530; 99306; 99309; 99316; J0835; J1650